=== PATIENT | female | born 1935 | race Caucasian/White ===

== ENCOUNTER 2020-12-04 18:33 | Inpatient (IN) | payer MEDICARE, BC ==
--- NOTE | 2020-12-04 19:48 | ED ---
URI HPI - General Chief Complaint: Upper Respiratory Infection Stated Complaint: cough Time Seen by Provider: 12/04/20 19:24 Source: patient, family, RN notes reviewed Mode of arrival: wheelchair - History of Present Illness Initial Comments: 85-year-old female history pneumonia 2 in the past who states for last week she started with a sinus infection now she's had cough with chest congestion fevers chills sweats decreased oral intake urinary frequency some dizziness also some loss of taste and smell. No known exposure to pneumonia around exposure to influenza or cold and at 21. She also has had some chest tightness. MD Complaint: fever, cough, nasal congestion, other - Related Data Home Medications Medication Instructions Recorded Confirmed Ibuprofen [Motrin Ib] 400 mg PO Q8H PRN 12/04/20 12/04/20 Thyroid,Pork [[place] Thyroid] 30 mg PO DAILY 12/04/20 12/04/20 Allergies Allergy/AdvReac Type Severity Reaction Status Date / Time Penicillins Allergy Itching Verified 12/04/20 20:40 Review of Systems ROS Statement: Those systems with pertinent positive or pertinent negative responses have been documented in the HPI. ROS Other: All systems not noted in ROS Statement are negative. Past Medical History Past Medical History: Thyroid Disorder History of Any Multi-Drug Resistant Organisms: None Reported Past Surgical History: Cholecystectomy Additional Past Surgical History / Comment(s): back surgeries Past Psychological History: No Psychological Hx Reported Smoking Status: Never smoker Past Alcohol Use History: Rare Past Drug Use History: None Reported General Exam - General Exam Comments Initial Comments: This is a well-developed well-nourished awake alert oriented 3 female General appearance: alert, in no apparent distress Head exam: Present: atraumatic, normocephalic, normal inspection Eye exam: Present: normal appearance, PERRL, EOMI. Absent: scleral icterus, conjunctival injection, periorbital swelling ENT exam: Present: mucous membranes dry Neck exam: Present: normal inspection. Absent: tenderness, meningismus, lymphadenopathy Respiratory exam: Present: decreased breath sounds, other (Slight crepitus lipase). Absent: respiratory distress, wheezes, rales, rhonchi, stridor Cardiovascular Exam: Present: regular rate, normal rhythm, normal heart sounds. Absent: systolic murmur, diastolic murmur, rubs, gallop, clicks GI/Abdominal exam: Present: soft, normal bowel sounds. Absent: distended, tenderness, guarding, rebound, rigid Extremities exam: Present: normal inspection, full ROM, normal capillary refill. Absent: tenderness, pedal edema, joint swelling, calf tenderness Back exam: Present: normal inspection Neurological exam: Present: alert, oriented X3, CN II-XII intact Psychiatric exam: Present: normal affect, normal mood Skin exam: Present: warm, dry, intact, normal color. Absent: rash Course Vital Signs 12/04/20 12/04/20 19:13 22:16 Temperature 99.5 F Pulse Rate 80 77 Respiratory 18 16 Rate Blood Pressure 129/63 128/66 O2 Sat by Pulse 93 L 99 Oximetry Medical Decision Making - Medical Decision Making I did a long discussion with patient and her regarding findings patient is cold and positive she does demonstrate evidence of interstitial infiltrate. She did receive IV Rocephin prior to the: Results. Also elevation of her troponin she's had no chest pain. Patient does state that she does not want the antiviral medication at this time. - Lab Data Result diagrams: 12/04/20 19:59 12/04/20 19:59 Lab Results 12/04/20 12/04/20 12/04/20 Range/Units 19:59 19:59 19:59 WBC 13.7 H (3.8-10.6) k/uL RBC 4.22 (3.80-5.40) m/uL Hgb 13.1 (11.4-16.0) gm/dL Hct 39.2 (34.0-46.0) % MCV 93.0 (80.0-100.0) fL MCH 31.1 (25.0-35.0) pg MCHC 33.4 (31.0-37.0) g/dL RDW 12.9 (11.5-15.5) % Plt Count 268 (150-450) k/uL MPV 7.7 Neutrophils % 85 % Lymphocytes % 9 % Monocytes % 4 % Eosinophils % 0 % Basophils % 0 % Neutrophils # 11.6 H (1.3-7.7) k/uL Lymphocytes # 1.3 (1.0-4.8) k/uL Monocytes # 0.5 (0-1.0) k/uL Eosinophils # 0.0 (0-0.7) k/uL Basophils # 0.0 (0-0.2) k/uL Sodium (137-145) mmol/L Potassium (3.5-5.1) mmol/L Chloride (98-107) mmol/L Carbon Dioxide (22-30) mmol/L Anion Gap mmol/L BUN (7-17) mg/dL Creatinine (0.52-1.04) mg/dL Est GFR (CKD-EPI)AfAm (>60 ml/min/1.73 sqM) Est GFR (CKD-EPI)NonAf (>60 ml/min/1.73 sqM) Glucose (74-99) mg/dL Plasma Lactic Acid Federico (0.7-2.0) mmol/L Calcium (8.4-10.2) mg/dL Magnesium (1.6-2.3) mg/dL Total Bilirubin (0.2-1.3) mg/dL AST (14-36) U/L ALT (4-34) U/L Alkaline Phosphatase (38-126) U/L Creatine Kinase (30-135) U/L Troponin I (0.000-0.034) ng/mL Total Protein (6.3-8.2) g/dL Albumin (3.5-5.0) g/dL Urine Color Light Yellow Urine Appearance Clear (Clear) Urine pH 5.5 (5.0-8.0) Ur Specific [place] 1.009 (1.001-1.035) Urine Protein Trace H (Negative) Urine Glucose (UA) Negative (Negative) Urine Ketones Trace H (Negative) Urine Blood Small H (Negative) Urine Nitrite Negative (Negative) Urine Bilirubin Negative (Negative) Urine Urobilinogen <2.0 (<2.0) mg/dL Ur Leukocyte Esterase Small H (Negative) Urine RBC 1 (0-5) /hpf Urine WBC 4 (0-5) /hpf Ur Squamous Epith Cells <1 (0-4) /hpf Urine Bacteria Rare H (None) /hpf Urine Mucus Rare H (None) /hpf Influenza Type A (PCR) Not Detected (Not Detectd) Influenza Type B (PCR) Not Detected (Not Detectd) RSV (PCR) Not Detected (Not Detectd) SARS-CoV-2 (PCR) Detected A (Not Detectd) 12/04/20 12/04/20 12/04/20 Range/Units 19:59 19:59 19:59 WBC (3.8-10.6) k/uL RBC (3.80-5.40) m/uL Hgb (11.4-16.0) gm/dL Hct (34.0-46.0) % MCV (80.0-100.0) fL MCH (25.0-35.0) pg MCHC (31.0-37.0) g/dL RDW (11.5-15.5) % Plt Count (150-450) k/uL MPV Neutrophils % % Lymphocytes % % Monocytes % % Eosinophils % % Basophils % % Neutrophils # (1.3-7.7) k/uL Lymphocytes # (1.0-4.8) k/uL Monocytes # (0-1.0) k/uL Eosinophils # (0-0.7) k/uL Basophils # (0-0.2) k/uL Sodium 130 L (137-145) mmol/L Potassium 4.4 (3.5-5.1) mmol/L Chloride 94 L (98-107) mmol/L Carbon Dioxide 27 (22-30) mmol/L Anion Gap 9 mmol/L BUN 17 (7-17) mg/dL Creatinine 0.79 (0.52-1.04) mg/dL Est GFR (CKD-EPI)AfAm 81 (>60 ml/min/1.73 sqM) Est GFR (CKD-EPI)NonAf 70 (>60 ml/min/1.73 sqM) Glucose 131 H (74-99) mg/dL Plasma Lactic Acid Federico 1.0 (0.7-2.0) mmol/L Calcium 9.7 (8.4-10.2) mg/dL Magnesium 2.0 (1.6-2.3) mg/dL Total Bilirubin 0.6 (0.2-1.3) mg/dL AST 33 (14-36) U/L ALT 23 (4-34) U/L Alkaline Phosphatase 78 (38-126) U/L Creatine Kinase 81 (30-135) U/L Troponin I 0.075 H* (0.000-0.034) ng/mL Total Protein 7.4 (6.3-8.2) g/dL Albumin 4.1 (3.5-5.0) g/dL Urine Color Urine Appearance (Clear) Urine pH (5.0-8.0) Ur Specific [place] (1.001-1.035) Urine Protein (Negative) Urine Glucose (UA) (Negative) Urine Ketones (Negative) Urine Blood (Negative) Urine Nitrite (Negative) Urine Bilirubin (Negative) Urine Urobilinogen (<2.0) mg/dL Ur Leukocyte Esterase (Negative) Urine RBC (0-5) /hpf Urine WBC (0-5) /hpf Ur Squamous Epith Cells (0-4) /hpf Urine Bacteria (None) /hpf Urine Mucus (None) /hpf Influenza Type A (PCR) (Not Detectd) Influenza Type B (PCR) (Not Detectd) RSV (PCR) (Not Detectd) SARS-CoV-2 (PCR) (Not Detectd) - EKG Data -: EKG Interpreted by Me EKG shows normal: sinus rhythm EKG Comments: Sinus rhythm a 76. Interval 166 QRS 140 QT since QTC 446/501 possible left atrial enlargement evidence of left exodeviation left bundle-branch block. No old EKG for comparison - Radiology Data Radiology results: report reviewed (Image reviewed evidence of interstitial infiltrate.), image reviewed Disposition Clinical Impression: Pneumonia, COVID-19, Elevated troponin Disposition: ADMITTED IP TO THIS [facility] Condition: Fair Referrals: Nonstaff,Physician [REFERRING] - 1-2 days
[2020-12-04 20:22] LABS: Basophils % (A) 0 %; Eosinophils % (A) 0 %; HCT 39.2 % (34.0-46.0); HGB 13.1 gm/dL (11.4-16.0); Lymphocytes # (A) 1.3 k/uL (1.0-4.8); Lymphocytes % (A) 9 %; MCH 31.1 pg (25.0-35.0); MCHC 33.4 g/dL (31.0-37.0); Mean Platelet Volume 7.7; Monocytes # (A) 0.5 k/uL (0-1.0); Monocytes % (A) 4 %; Neutrophils # (A) 11.6 k/uL (1.3-7.7); Neutrophils % (A) 85 %; Platelet Count 268 k/uL (150-450); RBC 4.22 m/uL (3.80-5.40); RDW 12.9 % (11.5-15.5); WBC 13.7 k/uL (3.8-10.6)
--- NOTE | 2020-12-04 20:32 | XR ---
EXAMINATION TYPE: XR chest 2V DATE OF EXAM: 12/04/2020 COMPARISON: NONE HISTORY: Cough TECHNIQUE: 2 views FINDINGS: There is pulmonary interstitial and airspace edema. Costophrenic angles are clear. Heart is borderline enlarged. There is a mild thoracic dextroscoliosis. There is very slight blunting of the costophrenic angles. IMPRESSION: Mild pulmonary interstitial edema could relate to acute heart failure. Interstitial pneum onia not excluded.
[2020-12-04 20:39] LABS: Albumin 4.1 g/dL (3.5-5.0); Calcium 9.7 mg/dL (8.4-10.2); Potassium 4.4 mmol/L (3.5-5.1); Total Bilirubin 0.6 mg/dL (0.2-1.3); Total Protein 7.4 g/dL (6.3-8.2)
[2020-12-04 20:41] LABS: Appearance,Urine Clear (Clear); Bacteria,Urine Rare /hpf; Bilirubin,Urine Negative (Negative); Blood,Urine Small (Negative); Color,Urine Light Yellow; Glucose,Urine (UA) Negative (Negative); Ketones,Urine Trace (Negative); Leukocyte Esterase,Urine Small (Negative); Mucus,Urine Rare /hpf; Nitrite,Urine Negative (Negative); PH, Urine 5.5 (5.0-8.0); Protein,Urine Trace (Negative); RBC,Urine 1 /hpf (0-5); Specific Gravity,Urine 1.009 (1.001-1.035); Squamous Epithelial Cell,Urine <1 /hpf (0-4); Urobilinogen,Urine <2.0 mg/dL (<2.0); WBC,Urine 4 /hpf (0-5)
[2020-12-04] MEDS ORDERED: cefTRIAXone IN SWFI 1,000 MG/10 ML SYRINGE IVP ONE (21:15)
[2020-12-04] MEDS ORDERED: PNEUMONIA PROTOCOL UTILIZED 1 EACH MISC PO PRN (22:25)
[2020-12-04] MEDS ORDERED: ASPIRIN 81 MG PO STA (22:29)
[2020-12-04] MEDS ORDERED: NITROGLYCERIN SL TABS 0.4 MG TAB SUBLINGUAL PRN (22:29)
[2020-12-04] MEDS: SODIUM CHLORIDE 0.9% 1,000 ML IV SCH (23:35)
[2020-12-05] MEDS: ACETAMINOPHEN TAB 325 MG TAB PO PRN ×3 (02:25→21:25)
[2020-12-05] MEDS ORDERED: FAMOTIDINE 20 MG TAB PO SCH (09:00)
[2020-12-05] MEDS: THYROID, PORK 30 MG TAB PO SCH (10:11)
[2020-12-05] MEDS: ENOXAPARIN 40 MG/0.4 ML SYRINGE SQ SCH (10:12)
[2020-12-05] MEDS: dexAMETHasone 4 MG TAB PO SCH (10:12)
[2020-12-05] MEDS: ASPIRIN 325 MG TAB PO SCH (10:12)
--- NOTE | 2020-12-05 10:14 | P.HPIM ---
History of Present Illness Patient was an 85-year-old female came in with the complaints of cough and fever found to have COVID-19. Patient is a poor historian patient was having fever for last few days and unable to exactly given the date of fever symptoms patient was having congestion and sinusitis symptoms which started about 2 weeks ago. Exact onset of symptoms is not known. She didn't get her COVID-19 vaccine. She is presently on 2 L of oxygen saturating well chest x-ray findings are consistent with COVID-19. Patient was having minimal cough. Patient is presently having fevers d-dimer is not available which will be ordered. REVIEW OF SYSTEMS: CONSTITUTIONAL: No fever, no malaise, no fatigue. HEENT: No recent visual problems or hearing problems. Denied any sore throat. CARDIOVASCULAR: No chest pain, orthopnea, PND, no palpitations, no syncope. PULMONARY: As mentioned in HPI GASTROINTESTINAL: No diarrhea, no nausea, no vomiting, no abdominal pain. NEUROLOGICAL: No headaches, no weakness, no numbness. HEMATOLOGICAL: Denies any bleeding or petechiae. GENITOURINARY: Denies any burning micturition, frequency, or urgency. MUSCULOSKELETAL/RHEUMATOLOGICAL: Denies any joint pain, swelling, or any muscle pain. ENDOCRINE: Denies any polyuria or polydipsia. The rest of the 14-point review of systems is negative. PHYSICAL EXAMINATION: GENERAL: The patient is alert and oriented x3, not in any acute distress. Well developed, well nourished. HEENT: Pupils are round and equally reacting to light. EOMI. No scleral icterus. No conjunctival pallor. Normocephalic, atraumatic. No pharyngeal erythema. No thyromegaly. CARDIOVASCULAR: S1 and S2 present. No murmurs, rubs, or gallops. PULMONARY: Chest is clear to auscultation, no wheezing or crackles. ABDOMEN: Soft, nontender, nondistended, normoactive bowel sounds. No palpable organomegaly. MUSCULOSKELETAL: No joint swelling or deformity. EXTREMITIES: No cyanosis, clubbing, or pedal edema. NEUROLOGICAL: Gross neurological examination did not reveal any focal deficits. SKIN: No rashes. Assessment and plan -COVID-19 pneumonia: Patient will be started on Decadron Pepcid and Lovenox, d- dimer will be ordered. Pulmonary will be consulted -Mildly elevated troponin secondary to systemic inflammatory response cardiology was consulted -Leukocytosis: Due to assessment 1 hyponatremia hypovolemic hyponatremia patient will be started on IV fluids -Hyperthyroidism patient will be resumed on her home dose of levothyroxine. DVT prophylaxis: Lovenox Past Medical History Past Medical History: Thyroid Disorder History of Any Multi-Drug Resistant Organisms: None Reported Past Surgical History: Back Surgery, Cholecystectomy Additional Past Surgical History / Comment(s): back surgeries Past Anesthesia/Blood Transfusion Reactions: No Reported Reaction Past Psychological History: No Psychological Hx Reported Smoking Status: Unknown if ever smoked Past Alcohol Use History: Rare Past Drug Use History: None Reported Medications and Allergies Home Medications Medication Instructions Recorded Confirmed Type Ibuprofen [Motrin Ib] 400 mg PO Q8H PRN 12/04/20 12/04/20 History Thyroid,Pork [[place] Thyroid] 30 mg PO DAILY 12/04/20 12/04/20 History Allergies Allergy/AdvReac Type Severity Reaction Status Date / Time Penicillins Allergy Itching Verified 12/04/20 20:40 Physical Exam Vitals: Vital Signs Temp Pulse Pulse Resp BP BP Pulse Ox 12/05/20 06:27 100.7 F H 12/05/20 04:00 100.3 F H 95 18 135/64 93 L 12/05/20 03:01 90 L 12/05/20 03:00 102 F H 86 L 12/05/20 02:31 22 91 L 12/05/20 02:00 120 H 22 12/05/20 01:57 103 F H 120 H 18 168/72 89 L 12/04/20 22:16 77 16 128/66 99 12/04/20 19:13 99.5 F 80 18 129/63 93 L Intake and Output 12/04/20 12/05/20 12/05/20 22:59 06:59 14:59 Intake Total 0 Output Total 100 Balance -100 Intake: Oral 0 Output: Urine 100 Other: Voiding Method Diaper External Catheter # Voids 1 1 Weight 70.307 kg 71.5 kg Results CBC & Chem 7: 12/04/20 19:59 12/04/20 19:59 Labs: Abnormal Lab Results - Last 24 Hours (Table) 12/04/20 12/04/20 12/04/20 Range/Units 19:59 19:59 19:59 WBC 13.7 H (3.8-10.6) k/uL Neutrophils # 11.6 H (1.3-7.7) k/uL D-Dimer (<0.60) mg/L FEU Sodium (137-145) mmol/L Chloride (98-107) mmol/L Glucose (74-99) mg/dL Troponin I (0.000-0.034) ng/mL Urine Protein Trace H (Negative) Urine Ketones Trace H (Negative) Urine Blood Small H (Negative) Ur Leukocyte Esterase Small H (Negative) Urine Bacteria Rare H (None) /hpf Urine Mucus Rare H (None) /hpf SARS-CoV-2 (PCR) Detected A (Not Detectd) 12/04/20 12/04/20 12/04/20 Range/Units 19:59 19:59 22:41 WBC (3.8-10.6) k/uL Neutrophils # (1.3-7.7) k/uL D-Dimer (<0.60) mg/L FEU Sodium 130 L (137-145) mmol/L Chloride 94 L (98-107) mmol/L Glucose 131 H (74-99) mg/dL Troponin I 0.075 H* 0.053 H* (0.000-0.034) ng/mL Urine Protein (Negative) Urine Ketones (Negative) Urine Blood (Negative) Ur Leukocyte Esterase (Negative) Urine Bacteria (None) /hpf Urine Mucus (None) /hpf SARS-CoV-2 (PCR) (Not Detectd) 12/05/20 12/05/20 Range/Units 02:06 09:46 WBC (3.8-10.6) k/uL Neutrophils # (1.3-7.7) k/uL D-Dimer 2.02 H (<0.60) mg/L FEU Sodium (137-145) mmol/L Chloride (98-107) mmol/L Glucose (74-99) mg/dL Troponin I 0.066 H* (0.000-0.034) ng/mL Urine Protein (Negative) Urine Ketones (Negative) Urine Blood (Negative) Ur Leukocyte Esterase (Negative) Urine Bacteria (None) /hpf Urine Mucus (None) /hpf SARS-CoV-2 (PCR) (Not Detectd) Thrombosis Risk Factor Assmnt - Choose All That Apply Each Risk Factor Represents 3 Points: Age 75 years or older Thrombosis Risk Factor Assessment Total Risk Factor Score: 3 Thrombosis Risk Factor Assessment Level: Moderate Risk
[2020-12-05 12:07] LABS: Chol/HDL Ratio 2.91 Ratio; HDL Cholesterol 66.6 mg/dL (40.00-60.00); LDL Cholesterol,Calculated 109.8 mg/dL (0.0-131.0); Triglycerides 88.1 mg/dL (0.00-149.00); VLDL Calculation 17.62 mg/dL (5.00-40.00)
--- NOTE | 2020-12-05 12:07 | P.CNPUL ---
History of Present Illness Consult date: 12/05/20 Reason for consult: pneumonia History of present illness: 85-year-old female patient is less with COVID-19 related to pneumonia. The patient was having increased cough and fever. She is essentially a poor historian. Apparently she was having fever for past several days and sized exact onset of the symptoms are not clear to me at this point in time. Note that she is not vaccinated for COVID-19. She is currently hospitalized and she is on 2 L of oxygen by nasal cannula. She had a white cell count of 13.7 at time of admission and her sodium level was 140, troponins were 0.07 and 0.05 respectively 2, d-dimer is at 2.02 and a chest x-ray showed interstitial pneumonia bilaterally. Patient is currently on Decadron the patient also cov ered with Lovenox 40 mg subcu for DVT prophylaxis. The patient is also receiving normal saline at the rate of 100 mL an hour. No other complaints otherwise. Comorbid conditions include hypothyroidism and osteoarthritis. Review of Systems Constitutional: Reports fatigue, Reports fever Eyes: denies as per HPI, denies blurred vision, denies bulging eye, denies decreased vision, denies diplopia, denies discharge, denies dry eye, denies irritation, denies itching, denies pain, denies photophobia, denies loss of peripheral vision, denies loss of vision, denies tunnel vision/blind spots Ears: deny: decreased hearing, ear discharge, earache, tinnitus Ears, nose, mouth and throat: Reports as per HPI Breasts: absent: as per HPI, change in shape, gynecomastia, masses, nipple discharge, pain, skin changes, swelling Cardiovascular: Reports dyspnea on exertion Respiratory: Reports congestion, Reports dyspnea Gastrointestinal: Reports as per HPI Genitourinary: Reports as per HPI Menstruation: Reports as per HPI Musculoskeletal: Reports as per HPI Musculoskeletal: absent: ankle pain, ankle stiffness, ankle swelling, as per HPI, elbow pain, elbow stiffness, elbow swelling, foot pain, foot stiffness, foot swelling, hand pain, hand stiffness, hand swelling, hip pain, hip stiffness , hip swelling, knee pain, knee stiffness, knee swelling, shoulder pain, shoulder stiffness, shoulder swelling, wrist pain, wrist stiffness, wrist swelling Integumentary: Reports as per HPI Neurological: Reports as per HPI Psychiatric: Reports as per HPI Endocrine: Reports as per HPI Hematologic/Lymphatic: Reports as per HPI Allergic/Immunologic: Reports as per HPI Past Medical History Past Medical History: Thyroid Disorder History of Any Multi-Drug Resistant Organisms: None Reported Past Surgical History: Back Surgery, Cholecystectomy Additional Past Surgical History / Comment(s): back surgeries Past Anesthesia/Blood Transfusion Reactions: No Reported Reaction Past Psychological History: No Psychological Hx Reported Smoking Status: Unknown if ever smoked Past Alcohol Use History: Rare Past Drug Use History: None Reported Medications and Allergies Home Medications Medication Instructions Recorded Confirmed Type Ibuprofen [Motrin Ib] 400 mg PO Q8H PRN 12/04/20 12/04/20 History Thyroid,Pork [[place] Thyroid] 30 mg PO DAILY 12/04/20 12/04/20 History Allergies Allergy/AdvReac Type Severity Reaction Status Date / Time Penicillins Allergy Itching Verified 12/04/20 20:40 Physical Exam Vitals: Vital Signs Temp Pulse Pulse Resp BP BP Pulse Ox 12/05/20 06:27 100.7 F H 12/05/20 04:00 100.3 F H 95 18 135/64 93 L 12/05/20 03:01 90 L 12/05/20 03:00 102 F H 86 L 12/05/20 02:31 22 91 L 12/05/20 02:00 120 H 22 12/05/20 01:57 103 F H 120 H 18 168/72 89 L 12/04/20 22:16 77 16 128/66 99 12/04/20 19:13 99.5 F 80 18 129/63 93 L Intake and Output 12/04/20 12/05/20 12/05/20 22:59 06:59 14:59 Intake Total 0 Output Total 425 Balance -425 Intake: Oral 0 Output: Urine 100 Urine/Stool Mix 325 Other: Voiding Method Diaper External Catheter # Voids 1 1 Weight 70.307 kg 71.5 kg GENERAL: The patient is alert and oriented x3, not in any acute distress. Well developed, well nourished. HEENT: Pupils are round and equally reacting to light. EOMI. No scleral icterus. No conjunctival pallor. Normocephalic, atraumatic. No pharyngeal erythema. No thyromegaly. CARDIOVASCULAR: S1 and S2 present. No murmurs, rubs, or gallops. PULMONARY: Chest is clear to auscultation, no wheezing or crackles. ABDOMEN: Soft, nontender, nondistended, normoactive bowel sounds. No palpable organomegaly. MUSCULOSKELETAL: No joint swelling or deformity. EXTREMITIES: No cyanosis, clubbing, or pedal edema. NEUROLOGICAL: Gross neurological examination did not reveal any focal deficits. SKIN: No rashes. Results - Laboratory Findings CBC and BMP: 12/04/20 19:59 12/04/20 19:59 PT/INR, D-dimer D-Dimer 2.02 mg/L FEU (<0.60) H 12/05/20 09:46 Abnormal lab findings: Abnormal Labs 12/04/20 12/04/20 12/04/20 19:59 19:59 19:59 WBC 13.7 H Neutrophils # 11.6 H D-Dimer Sodium Chloride Glucose Troponin I Urine Protein Trace H Urine Ketones Trace H Urine Blood Small H Ur Leukocyte Esterase Small H Urine Bacteria Rare H Urine Mucus Rare H SARS-CoV-2 (PCR) Detected A 12/04/20 12/04/20 12/04/20 19:59 19:59 22:41 WBC Neutrophils # D-Dimer Sodium 130 L Chloride 94 L Glucose 131 H Troponin I 0.075 H* 0.053 H* Urine Protein Urine Ketones Urine Blood Ur Leukocyte Esterase Urine Bacteria Urine Mucus SARS-CoV-2 (PCR) 12/05/20 12/05/20 02:06 09:46 WBC Neutrophils # D-Dimer 2.02 H Sodium Chloride Glucose Troponin I 0.066 H* Urine Protein Urine Ketones Urine Blood Ur Leukocyte Esterase Urine Bacteria Urine Mucus SARS-CoV-2 (PCR) - Diagnostic Findings Chest x-ray: image reviewed Assessment and Plan Plan: 1 acute COVID-19 related pneumonia. The exact onset of symptoms is not clear and the patient is currently hospitalized with acute hypoxic respiratory failure maintained on 2 L of oxygen by cannula. The patient is not vaccinated. She believes that her symptoms started approximately 5 days ago. Nevertheless, prior to that, she had some sinus symptoms and she attributed this to some sinusitis. As such, the exact timing and onset of symptoms is not clear. 2 acute hypoxic respiratory failure secondary to above 3 Hypothyroid 4 OA Plan Continue oxygen flow at 2 L per minute nasal cannula to maintain saturation above 90% Decadron 6 g IV every 24 hours Lovenox 40 mg subcu daily Check LDH and CRP Monitor oxygenation and wean down the FiO2 as tolerated to maintain a saturation above 90% Not a good candidate for Remdesivir Resume all medications We'll continue to follow
--- NOTE | 2020-12-05 12:57 | PN ---
PROGRESS NOTE I did not see this patient. She has been admitted with fever and COVID positive interstitial pneumonia. Troponin was elevated. I was asked to see her in this regard. Troponin profile does not suggest myocardial injury. I am recommending that we will obtain echocardiogram tomorrow and based on that we will make recommendations. The patient is already being treated by the admitting doctor for her COVID interstitial pneumonia. I will see her only if necessary but will recommend echocardiogram. MMODL / IJN: [id number] /
[2020-12-05] MEDS: BENZOCAINE/MENTHOL LOZENG 1 EACH LOZENGE MUCOUS MEM PRN (16:50)
[2020-12-05] MEDS: SODIUM CHLORIDE 0.9% 1,000 ML IV SCH (16:51)
[2020-12-06] MEDS: SODIUM CHLORIDE 0.9% 1,000 ML IV SCH ×3 (00:25→19:37)
[2020-12-06] MEDS: ACETAMINOPHEN TAB 325 MG TAB PO PRN ×2 (06:51→18:01)
[2020-12-06 08:04] LABS: HCT 36.8 % (34.0-46.0); HGB 12.2 gm/dL (11.4-16.0); MCHC 33.1 g/dL (31.0-37.0); MCV 93.5 fL (80.0-100.0); Mean Platelet Volume 8.4; Platelet Count 267 k/uL (150-450); RBC 3.94 m/uL (3.80-5.40); RDW 13.1 % (11.5-15.5); WBC 16.9 k/uL (3.8-10.6)
[2020-12-06 08:18] LABS: African American GFR (CKD) >90 (>60 ml/min/1.73 sqM); Anion Gap 11 mmol/L; Blood Urea Nitrogen 16 mg/dL (7-17); Calcium 8.9 mg/dL (8.4-10.2); Carbon Dioxide 23 mmol/L (22-30); Chloride 99 mmol/L (98-107); Glucose 110 mg/dL (74-99); Non-African American GFR(CKD) 82 (>60 ml/min/1.73 sqM); Potassium 4.2 mmol/L (3.5-5.1); Sodium 133 mmol/L (137-145)
[2020-12-06] MEDS ORDERED: FAMOTIDINE 20 MG TAB PO SCH (09:00)
[2020-12-06] MEDS: ENOXAPARIN 40 MG/0.4 ML SYRINGE SQ SCH (09:43)
[2020-12-06] MEDS: ASPIRIN 325 MG TAB PO SCH (09:43)
[2020-12-06] MEDS: dexAMETHasone 4 MG TAB PO SCH (09:43)
[2020-12-06] MEDS: THYROID, PORK 30 MG TAB PO SCH (09:43)
[2020-12-06] MEDS: IBUPROFEN 400 MG TAB PO PRN (13:05)
--- NOTE | 2020-12-06 14:37 | P.PN ---
Subjective This 85-year-old female past medical history of hypothyroidism. She does not see a edge setter. We are being consulted for elevated troponin. Patient presents emergency department with cough and fever about have COVID-19. Blood pressure 03/28/1956, heart rate 124, febrile temperature of 103F. oxygen saturations 88% on 4 L nasal cannula, requiring increase to 7L high flow. Laboratory data reviewed. WBC 16.9, hemoglobin 12, platelets 267, sodium 133, potassium 4.0, BUN 16, serum creatinine 0.6, d-dimer 2.02, troponin 0.07, 0.05, 0.06. PHYSICAL EXAMINATION: GENERAL: The patient is alert and oriented x3, not in any acute distress. Well developed, well nourished. ASSESSMENT Elevated troponin, does not suggest myocardial injury, most likely related to covid-19 infection Covid-19 Acute hypoxic respiratory failure Hypothyroidism PLAN: -2D echocardiogram obtained, awaiting read -Covid-19 treatment per primary and pulmonary -No further changes from cardiology perspective -If echocardiogram with no acute findings we will follow the patient as needed Objective - Vital Signs Vital signs: Vital Signs Temp 103.1 F H 12/06/20 08:00 Pulse 124 H 12/06/20 08:00 Resp 20 12/06/20 08:00 BP 124/59 12/06/20 08:00 Pulse Ox 88 L 12/06/20 08:00 Intake & Output 12/05/20 12/06/20 12/06/20 18:59 06:59 18:59 Intake Total 420 200 0 Output Total 650 Balance -230 200 0 Intake: IV 200 Sodium Chloride 0.9% 1, 200 000 ml @ 100 mls/hr IV . Q10H [facility] Rx#:[id number] Oral 420 0 Output: Urine 100 Urine/Stool Mix 550 Other: Voiding Method Diaper Diaper External Catheter External Catheter # Voids 1 2 - Labs CBC & Chem 7: 12/06/20 07:28 12/06/20 07:28 Labs: Abnormal Lab Results - Last 24 Hours (Table) 12/06/20 12/06/20 Range/Units 07:28 07:28 WBC 16.9 H (3.8-10.6) k/uL Sodium 133 L (137-145) mmol/L Glucose 110 H (74-99) mg/dL Microbiology - Last 24 Hours (Table) 12/04/20 19:59 Blood Culture - Preliminary Blood No Growth after 24 hours
--- NOTE | 2020-12-06 17:22 | P.PN ---
Subjective Progress Note Date: 12/06/20 Principal diagnosis: Acute hypoxic laboratory failure secondary to COVID-19 pneumonia 85-year-old female patient is less with COVID-19 related to pneumonia. The patient was having increased cough and fever. She is essentially a poor historian. Apparently she was having fever for past several days and sized exact onset of the symptoms are not clear to me at this point in time. Note that she is not vaccinated for COVID-19. She is currently hospitalized and she is on 2 L of oxygen by nasal cannula. She had a white cell count of 13.7 at time of admission and her sodium level was 140, troponins were 0.07 and 0.05 respectively 2, d-dimer is at 2.02 and a chest x-ray showed interstitial pneumonia bilaterally. Patient is currently on Decadron the patient also covered with Lovenox 40 mg subcu for DVT prophylaxis. The patient is also receiving normal saline at the rate of 100 mL an hour. No other complaints otherwise. Comorbid conditions include hypothyroidism and osteoarthritis. Reevaluated today on 12/06/2020, patient remains on 8 L high flow cannula with O2 saturation ranging anywhere between 88-96%. Patient seems to be comfortable, not in any distress. She is afebrile, she is hemodynamically stable blood pressure is 117/58. Labs today were unremarkable except she does have leukocytosis with WBC count of 16.9, d-dimer is 2.02 lites are normal renal pr ofile is normal. Patient is on COVID-19 cocktail, she is on Lovenox 40 mg subcu daily, she is on Decadron, did not receive Remdesivir, as she was likely out of the therapeutic window. Objective - Vital Signs Vital signs: Vital Signs Temp 98.3 F 12/06/20 12:00 Pulse 92 12/06/20 14:00 Resp 18 12/06/20 14:00 BP 117/58 12/06/20 12:00 Pulse Ox 96 12/06/20 12:00 Intake & Output 12/05/20 12/06/20 12/06/20 18:59 06:59 18:59 Intake Total 420 200 0 Output Total 650 Balance -230 200 0 Intake: IV 200 Sodium Chloride 0.9% 1, 200 000 ml @ 100 mls/hr IV . Q10H [facility] Rx#:[id number] Oral 420 0 Output: Urine 100 Urine/Stool Mix 550 Other: Voiding Method Diaper Diaper Diaper External Catheter External Catheter External Catheter # Voids 1 2 # Bowel Movements 1 - Exam Physical Exam revealed 85-year-old female on 7 L high flow cannula Head: Atraumatic, normocephalic. HEENT:[Neck is supple.] [No neck masses.] [No thyromegaly.] [No JVD.] Chest: [Symmetrical chest expansion crackles at the bases. No wheezes. Cardiac Exam: [Normal S1 and S2, no S3 gallop, no murmur.] Abdomen: [Soft, nontender, no megaly, no rebound, no guarding, normal bowel sounds.] Extremities: [No clubbing, no edema, no cyanosis.] Neurological Exam: [No focal neurologic deficit.] Alert oriented 3. Psychiatric: Normal mood affect and normal mental status examination. Skin: No rashes - Labs CBC & Chem 7: 12/06/20 07:28 12/06/20 07:28 Labs: Abnormal Lab Results - Last 24 Hours (Table) 12/06/20 12/06/20 Range/Units 07:28 07:28 WBC 16.9 H (3.8-10.6) k/uL Sodium 133 L (137-145) mmol/L Glucose 110 H (74-99) mg/dL Microbiology - Last 24 Hours (Table) 12/06/20 09:51 Sputum Culture - Preliminary Sputum 12/04/20 19:59 Blood Culture - Preliminary Blood No Growth after 24 hours Assessment and Plan Assessment: Acute hypoxic respiratory failure secondary to acute COVID-19 pneumonia History of hypothyroidism History of degenerative joint disease Recommendation: Continue oxygen and titrate accordingly Continue Decadron. Continue to monitor inflammatory markers Continue Lovenox 40 mg subcu daily Patient is out of the window for remdesivir We'll continue to follow. Time with Patient: Less than 30
[2020-12-06] MEDS: FAMOTIDINE 20 MG TAB PO SCH (22:26)
--- NOTE | 2020-12-07 03:50 | P.PN ---
Subjective Progress Note Date: 12/06/20 Patient was an 85-year-old female came in with the complaints of cough and fever found to have COVID-19. Patient is a poor historian patient was having fever for last few days and unable to exactly given the date of fever symptoms patient was having congestion and sinusitis symptoms which started about 2 weeks ago. Exact onset of symptoms is not known. She didn't get her COVID-19 vaccine. She is presently on 2 L of oxygen saturating well chest x-ray findings are consistent with COVID-19. Patient was having minimal cough. Patient is presently having fevers d-dimer is not available which will be ordered. 12/06/2020 Patient is seen and evaluated in follow up this morning and is slightly anxious. Patient is continued on 7-8 L High flow via NC with 02 saturations ranging from 88-94%. Patient denies any worsening shortness of breath but is requiring more oxygen supplementation. Pulmonary and cardio following. 2d echo was done and awaiting read. Patient continues on lovenox, oral decadron, along with vitamin and zinc supplementation. Patient continues to have fevers with T max 103.1. WBC is 16.9 today. Review of systems: Constitutional: No reports of fatigue, reports fever Cardiovascular: No reports of chest pain or palpitations Respiratory: reports of shortness of breath although no worsening GI: No reports of nausea, vomiting, or diarrhea : No reports of dysuria or retention Neurovascular: Reports generalized weakness PHYSICAL EXAMINATION: GENERAL: The patient is alert and oriented x3, not in any acute distress. Anxious, Well developed, well nourished. HEENT: Pupils are round and equally reacting to light. EOMI. No scleral icterus. No conjunctival pallor. Normocephalic, atraumatic. No pharyngeal erythema. No thyromegaly. CARDIOVASCULAR: S1 and S2 present. No murmurs, rubs, or gallops. PULMONARY: Chest is clear to auscultation, no wheezing or crackles. ABDOMEN: Soft, nontender, nondistended, normoactive bowel sounds. No palpable organomegaly. MUSCULOSKELETAL: No joint swelling or deformity. EXTREMITIES: No cyanosis, clubbing, or pedal edema. NEUROLOGICAL: Gross neurological examination did not reveal any focal deficits. diffusely weak SKIN: No rashes. Assessment and plan: -COVID-19 pneumonia: Patient maintained on Decadron, vitamin and zinc supp lements, and Lovenox. Pulmonary following -Mildly elevated troponin secondary to systemic inflammatory response cardiology evaluated the patient and 2d echo ordered -Leukocytosis: Due to assessment 1 -hyponatremia hypovolemic hyponatremia patient will be started on IV fluids, improving sodium is 133 today -Hypothyroidism patient will be resumed on her home dose of armour thyroid -DVT prophylaxis: Lovenox -Full code Plan: Continue current medications and wean FI02 as tolerated. PT/OT to evaluate the patient. Patient is weak and may possibly require rehab on discharge. Patient had temps this am and 02 requirements increased from 4L NC to 8L HF. Encouraged oral intake. Pulmonary following. Sputum culture pending. Patient with continued fevers and elevated WBC. Patient has been started on IV ceftriaxone. Will repeat am labs and order pro-calcitonin. Monitor for worsening respiratory status. Will order am chest xray as well. 2d echo pending. Objective - Vital Signs Vital signs: Vital Signs Temp 103.1 F H 12/06/20 06:49 Pulse 108 H 12/06/20 04:00 Resp 18 12/06/20 04:00 BP 144/78 12/06/20 04:00 Pulse Ox 93 L 12/06/20 04:00 Intake & Output 12/05/20 12/06/20 12/06/20 18:59 06:59 18:59 Intake Total 420 200 Output Total 650 Balance -230 200 Intake: IV 200 Sodium Chloride 0.9% 1, 200 000 ml @ 100 mls/hr IV . Q10H [facility] Rx#:[id number] Oral 420 Output: Urine 100 Urine/Stool Mix 550 Other: Voiding Method Diaper Diaper External Catheter External Catheter # Voids 1 2 - Labs CBC & Chem 7: 12/06/20 07:28 12/06/20 07:28 Labs: Abnormal Lab Results - Last 24 Hours (Table) 12/05/20 12/05/20 12/06/20 Range/Units 02:06 09:46 07:28 WBC 16.9 H (3.8-10.6) k/uL D-Dimer 2.02 H (<0.60) mg/L FEU Sodium (137-145) mmol/L Glucose (74-99) mg/dL HDL Cholesterol 66.60 H (40.00-60.00) mg/dL 12/06/20 Range/Units 07:28 WBC (3.8-10.6) k/uL D-Dimer (<0.60) mg/L FEU Sodium 133 L (137-145) mmol/L Glucose 110 H (74-99) mg/dL HDL Cholesterol (40.00-60.00) mg/dL Microbiology - Last 24 Hours (Table) 12/04/20 19:59 Blood Culture - Preliminary Blood No Growth after 24 hours
--- NOTE | 2020-12-07 08:12 | XR ---
EXAMINATION TYPE: XR chest 1V portable DATE OF EXAM: 12/07/2020 COMPARISON: Chest x-ray 12/04/2020 HISTORY: Shortness of breath TECHNIQUE: Single frontal view of the chest is obtained. FINDINGS: There is progression of bilateral airspace disease. Heart is thought to be enlarged. There is no evident pneumothorax or pleural effusion. Underlying scoliotic curvature noted in the spine, t here is degenerative disc change. There are overlying artifacts. Arthropathy noted shoulders. IMPRESSION: There is bilateral airspace disease, correlate for congestive heart failure, pneumonia, pulmonary edema
[2020-12-07 09:18] LABS: Basophils % (A) 0 %; Eosinophils # (A) 0.1 k/uL (0-0.7); Eosinophils % (A) 0 %; HCT 41.1 % (34.0-46.0); HGB 13.7 gm/dL (11.4-16.0); Lymphocytes # (A) 0.9 k/uL (1.0-4.8); Lymphocytes % (A) 4 %; MCH 31.1 pg (25.0-35.0); MCHC 33.4 g/dL (31.0-37.0); MCV 92.9 fL (80.0-100.0); Mean Platelet Volume 8.5; Monocytes # (A) 0.5 k/uL (0-1.0); Monocytes % (A) 2 %; Neutrophils # (A) 20.4 k/uL (1.3-7.7); Neutrophils % (A) 93 %; Platelet Count 282 k/uL (150-450); RBC 4.42 m/uL (3.80-5.40); RDW 13.4 % (11.5-15.5)
[2020-12-07] MEDS ORDERED: FUROSEMIDE 10 MG/ML 4 ML VIAL IV STA (09:43)
[2020-12-07 09:48] LABS: African American GFR (CKD) >90 (>60 ml/min/1.73 sqM); Anion Gap 10 mmol/L; Blood Urea Nitrogen 20 mg/dL (7-17); Calcium 9.6 mg/dL (8.4-10.2); Carbon Dioxide 25 mmol/L (22-30); Chloride 101 mmol/L (98-107); Glucose 124 mg/dL (74-99); Non-African American GFR(CKD) 87 (>60 ml/min/1.73 sqM); Potassium 4.6 mmol/L (3.5-5.1); Sodium 136 mmol/L (137-145)
[2020-12-07] MEDS: IBUPROFEN 400 MG TAB PO PRN (10:19)
[2020-12-07] MEDS: FAMOTIDINE 20 MG TAB PO SCH ×2 (10:21→23:14)
[2020-12-07] MEDS: BENZOCAINE/MENTHOL LOZENG 1 EACH LOZENGE MUCOUS MEM PRN ×2 (10:21→16:28)
[2020-12-07] MEDS: ASPIRIN 325 MG TAB PO SCH (10:21)
[2020-12-07] MEDS: ENOXAPARIN 40 MG/0.4 ML SYRINGE SQ SCH (10:21)
[2020-12-07] MEDS: dexAMETHasone 4 MG TAB PO SCH ×2 (10:21→23:14)
[2020-12-07] MEDS: THYROID, PORK 30 MG TAB PO SCH (10:21)
[2020-12-07] MEDS: SODIUM CHLORIDE 0.9% 1,000 ML IV SCH (10:41)
--- NOTE | 2020-12-07 13:07 | P.PN ---
Subjective Progress Note Date: 12/07/20 Principal diagnosis: Acute hypoxic respiratory failure secondary to COVID-19 85-year-old female patient is less with COVID-19 related to pneumonia. The patient was having increased cough and fever. She is essentially a poor historian. Apparently she was having fever for past several days and sized exact onset of the symptoms are not clear to me at this point in time. Note that she is not vaccinated for COVID-19. She is currently hospitalized and she is on 2 L of oxygen by nasal cannula. She had a white cell count of 13.7 at time of admission and her sodium level was 140, troponins were 0.07 and 0.05 respectively 2, d-dimer is at 2.02 and a chest x-ray showed interstitial pneumonia bilaterally. Patient is currently on Decadron the patient also covered with Lovenox 40 mg subcu for DVT prophylaxis. The patient is also receiving normal saline at the rate of 100 mL an hour. No other complaints otherwise. Comorbid conditions include hypothyroidism and osteoarthritis. Reevaluated today on 12/06/2020, patient remains on 8 L high flow cannula with O2 saturation ranging anywhere between 88-96%. Patient seems to be comfortable, not in any distress. She is afebrile, she is hemodynamically stable blood pressure is 117/58. Labs today were unremarkable except she does have leukocytosis with WBC count of 16.9, d-dimer is 2.02 lites are normal renal profile is normal. Patient is on COVID-19 cocktail, she is on Lovenox 40 mg subcu daily, she is on Decadron, did not receive Remdesivir, as she was likely out of the therapeutic window. The patient is seen today at 50,021 in follow-up on the selective care unit. She is currently resting fairly comfortably in bed. Awake and alert. She is requiring 10 L high flow nasal cannula to maintain O2 saturation at 90%. She's been afebrile. Hemodynamically stable. Chest x-ray continues to revealed bilateral airspace disease, possible underlying pulmonary edema. Blood cultures reveal no growth to date. Sputum culture pending. White count 22.0. Hemoglobin 13.7. Lymphocytes 0.9. Sodium 136. Potassium 4.6. Creatinine 0.56. She remains on Decadron 6 mg twice a day, Lovenox. Initiated on ceftriaxone per medicine. Pro-calcitonin pending. Received IV diuretics today. Objective - Vital Signs Vital signs: Vital Signs Temp 98.3 F 12/07/20 10:42 Pulse 93 12/07/20 10:42 Resp 24 12/07/20 12:00 BP 148/67 12/07/20 10:42 Pulse Ox 87 L 12/07/20 10:42 Intake & Output 12/06/20 12/07/20 12/07/20 18:59 06:59 18:59 Intake Total 240 830 Output Total 1180 Balance 240 -1180 830 Weight 75 kg Intake: IV 600 Sodium Chloride 0.9% 1, 600 000 ml @ 100 mls/hr IV . Q10H [facility] Rx#:[id number] Intake, IV Titration 50 Amount cefTRIAXone 1 gm In 50 Sodium Chloride 0.9% 50 ml @ 100 mls/hr IVPB Q24HR [facility] Rx#:[id number] Oral 240 180 Output: Urine 1180 Other: Voiding Method Diaper Diaper Diaper External Catheter External Catheter External Catheter # Voids 2 # Bowel Movements 1 1 - Exam GENERAL: The patient is a pleasant 85-year-old female patient, hard of hearing, alert and oriented x3, in mild respiratory distress. On 10 L high flow nasal cannula. Well developed, well nourished. HEENT: Pupils are round and equally reacting to light. EOMI. No scleral icterus. No conjunctival pallor. Normocephalic, atraumatic. No pharyngeal erythema. No thyromegaly. CARDIOVASCULAR: S1 and S2 present. No murmurs, rubs, or gallops. PULMONARY: Lungs sounds with bilateral crackles in the posterior bases ABDOMEN: Soft, nontender, nondistended, normoactive bowel sounds. No palpable organomegaly. MUSCULOSKELETAL: No joint swelling or deformity. EXTREMITIES: No cyanosis, clubbing, or pedal edema. NEUROLOGICAL: Gross neurological examination did not reveal any focal deficits. SKIN: No rashes. - Labs CBC & Chem 7: 12/07/20 08:29 12/07/20 08:29 Labs: Abnormal Lab Results - Last 24 Hours (Table) 12/07/20 12/07/20 Range/Units 08:29 08:29 WBC 22.0 H (3.8-10.6) k/uL Neutrophils # 20.4 H (1.3-7.7) k/uL Lymphocytes # 0.9 L (1.0-4.8) k/uL Sodium 136 L (137-145) mmol/L BUN 20 H (7-17) mg/dL Glucose 124 H (74-99) mg/dL Microbiology - Last 24 Hours (Table) 12/06/20 09:51 Gram Stain - Preliminary Sputum Sputum Culture - Preliminary 12/04/20 19:59 Blood Culture - Preliminary Blood No Growth after 48 hours Assessment and Plan Assessment: 1 Acute COVID-19 related pneumonia. The patient is not vaccinated. Outside the window for Remdesivir. 2 Acute hypoxic respiratory failure secondary to above number currently on 10 L high flow nasal cannula 3 Hypothyroid 4 OA Plan: The patient was seen and evaluated by Dr. Leyva Chest x-ray and labs reviewed Increase Decadron to 6 mg twice a day Procalcitonin level pending Continue Lovenox, bronchodilators, vitamin supplements Titrate the FiO2 as tolerated Condition is guarded We will continue to follow I, the cosigning physician, performed a history & physical examination of the patient. Lungs sounds crackles in the bilateral posterior. Maintaining good O2 saturations in the 90s on 10 L high flow nasal cannula. I discussed the assessment and plan of care with my nurse practitioner, Erlinda Deutsch. I attest to the above note as dictated by her.
[2020-12-07] MEDS: CHOLECALCIFEROL 25 MCG (1000 IU) TABLET PO SCH (16:24)
[2020-12-07] MEDS: ASCORBIC ACID 500 MG TAB PO SCH (16:24)
[2020-12-07] MEDS: ZINC SULFATE 220 MG CAP PO SCH (16:25)
[2020-12-07] MEDS: MELATONIN 3 MG TABLET PO PRN (23:14)
--- NOTE | 2020-12-08 04:32 | P.PN ---
Subjective Progress Note Date: 12/07/20 Patient was an 85-year-old female came in with the complaints of cough and fever found to have COVID-19. Patient is a poor historian patient was having fever for last few days and unable to exactly given the date of fever symptoms patient was having congestion and sinusitis symptoms which started about 2 weeks ago. Exact onset of symptoms is not known. She didn't get her COVID-19 vaccine. She is presently on 2 L of oxygen saturating well chest x-ray findings are consistent with COVID-19. Patient was having minimal cough. Patient is presently having fevers d-dimer is not available which will be ordered. 12/06/2020 Patient is seen and evaluated in follow up this morning and is slightly anxious. Patient is continued on 7-8 L High flow via NC with 02 saturations ranging from 88-94%. Patient denies any worsening shortness of breath but is requiring more oxygen supplementation. Pulmonary and cardio following. 2d echo was done and awaiting read. Patient continues on lovenox, oral decadron, along with vitamin and zinc supplementation. Patient continues to have fevers with T max 103.1. WBC is 16.9 today. 12/07/2020 Patient is seen in follow up today and requiring more oxygen as pulse ox was in the low to mid 80's on 8 L high flow via NC. Increased to 10 L HF with pulmonary following closely. Patient continues on decadron oral bid along lovenox being started on vitamin and zinc supplements and ID consulted for further evaluation of Covid 19. Patient was empirically started on IV ceftriaxone and given and dose for possible UTI although suspicion is low and will discontinue. Appreciate ID input. WBC elevated at 22 although likely due to steroids and will monitor. Will add incentive spirometer as well. Review of systems: Constitutional: No reports of fatigue, reports fever, reports unable to sleep Cardiovascular: No reports of chest pain or palpitations Respiratory: reports of shortness of breath with some worsening GI: No reports of nausea, vomiting, or diarrhea : No reports of dysuria or retention Neurovascular: Reports generalized weakness PHYSICAL EXAMINATION: GENERAL: The patient is alert and oriented x3, not in any acute distress. Anxious, Well developed, well nourished. HEENT: Pupils are round and equally reacting to light. EOMI. No scleral icterus. No conjunctival pallor. Normocephalic, atraumatic. No pharyngeal erythema. No thyromegaly. CARDIOVASCULAR: S1 and S2 present. No murmurs, rubs, or gallops. PULMONARY: diminished breath sounds otherwise Chest is clear to auscultation, no wheezing or crackles. ABDOMEN: Soft, nontender, nondistended, normoactive bowel sounds. No palpable organomegaly. MUSCULOSKELETAL: No joint swelling or deformity. EXTREMITIES: No cyanosis, clubbing, or pedal edema. NEUROLOGICAL: Gross neurological examination did not reveal any focal deficits. diffusely weak SKIN: No rashes. Assessment and plan: -COVID-19 pneumonia: Patient maintained on Decadron, vitamin and zinc supplements, and Lovenox. Pulmonary following -Mildly elevated troponin secondary to systemic inflammatory response cardiology evaluated the patient and 2d echo ordered -Leukocytosis: Due to assessment 1 -possible acute UTI, although suspicion is low and not having any burning or dysuria, possible asymptomatic bactiuria. will dc IV ceftriaxone, ID consulted -hyponatremia hypovolemic hyponatremia patient on IV fluids, improved. will dc fluids -Hypothyroidism patient will be resumed on her home dose of armour thyroid -DVT prophylaxis: Lovenox -Full code Plan: Continue current medications and wean FI02 as tolerated. PT/OT to evaluate the patient. Patient is weak and may possibly require rehab on discharge. Patient afebrile this am and 02 requirements increased from 8L NC to 10L HF. Encouraged oral intake. Pulmonary following. Sputum culture pending. Patient with continued elevated WBC. Patient has been started on IV ceftriaxone for possible UTI although suspicion is low and will dc abx. ID consulted and pending. Will repeat am labs and inflammatory markers. Monitor for worsening respiratory status. 2d echo pending. Objective - Vital Signs Vital signs: Vital Signs Temp 98.5 F 12/07/20 04:00 Pulse 93 12/07/20 04:00 Resp 20 12/07/20 04:00 BP 166/72 12/07/20 04:00 Pulse Ox 94 L 12/07/20 04:00 Intake & Output 12/06/20 12/07/20 12/07/20 18:59 06:59 18:59 Intake Total 240 180 Output Total 1180 Balance 240 -1180 180 Weight 75 kg Intake: Oral 240 180 Output: Urine 1180 Other: Voiding Method Diaper Diaper External Catheter External Catheter # Voids 2 # Bowel Movements 1 1 - Labs CBC & Chem 7: 12/07/20 08:29 12/07/20 08:29 Labs: Abnormal Lab Results - Last 24 Hours (Table) 12/07/20 Range/Units 08:29 WBC 22.0 H (3.8-10.6) k/uL Neutrophils # 20.4 H (1.3-7.7) k/uL Lymphocytes # 0.9 L (1.0-4.8) k/uL Microbiology - Last 24 Hours (Table) 12/06/20 09:51 Gram Stain - Preliminary Sputum Sputum Culture - Preliminary 12/04/20 19:59 Blood Culture - Preliminary Blood No Growth after 48 hours
[2020-12-08] MEDS: IBUPROFEN 400 MG TAB PO PRN (07:36)
[2020-12-08] MEDS: BENZOCAINE/MENTHOL LOZENG 1 EACH LOZENGE MUCOUS MEM PRN ×2 (07:36→15:27)
[2020-12-08] MEDS: ASPIRIN 325 MG TAB PO SCH (07:37)
[2020-12-08] MEDS: dexAMETHasone 4 MG TAB PO SCH ×2 (07:37→19:56)
[2020-12-08] MEDS: ASCORBIC ACID 500 MG TAB PO SCH (07:37)
[2020-12-08] MEDS: ENOXAPARIN 40 MG/0.4 ML SYRINGE SQ SCH (07:37)
[2020-12-08] MEDS: FAMOTIDINE 20 MG TAB PO SCH ×2 (07:37→19:56)
[2020-12-08] MEDS: THYROID, PORK 30 MG TAB PO SCH (07:38)
[2020-12-08] MEDS: ZINC SULFATE 220 MG CAP PO SCH (07:38)
[2020-12-08] MEDS: CHOLECALCIFEROL 25 MCG (1000 IU) TABLET PO SCH (07:38)
[2020-12-08 08:05] LABS: Basophils % (A) 0 %; Eosinophils % (A) 0 %; HCT 37.6 % (34.0-46.0); HGB 12.4 gm/dL (11.4-16.0); Lymphocytes # (A) 1.1 k/uL (1.0-4.8); Lymphocytes % (A) 6 %; MCV 93.8 fL (80.0-100.0); Mean Platelet Volume 7.8; Monocytes # (A) 0.3 k/uL (0-1.0); Monocytes % (A) 2 %; Neutrophils # (A) 17.8 k/uL (1.3-7.7); Neutrophils % (A) 92 %; Platelet Count 352 k/uL (150-450); WBC 19.2 k/uL (3.8-10.6)
--- NOTE | 2020-12-08 08:19 | XR ---
EXAMINATION TYPE: XR chest 1V portable DATE OF EXAM: 12/08/2020 COMPARISON: 12/07/2020 HISTORY: Cough TECHNIQUE: Single frontal view of the chest is obtained. FINDINGS: Diffuse bilateral airspace disease. Tiny bilateral effusions. No pneumothorax. Arthropathy shoulders. Heart is enlarged. Underlying COPD suggested. Curvature of the spine. IMPRESSION: Stable diffuse bilateral airspace disease.
[2020-12-08 08:34] LABS: African American GFR (CKD) >90 (>60 ml/min/1.73 sqM); Anion Gap 9 mmol/L; Blood Urea Nitrogen 22 mg/dL (7-17); Calcium 9.4 mg/dL (8.4-10.2); Carbon Dioxide 23 mmol/L (22-30); Chloride 103 mmol/L (98-107); Glucose 147 mg/dL (74-99); LDH 990 U/L (313-618); Non-African American GFR(CKD) 90 (>60 ml/min/1.73 sqM); Potassium 4.3 mmol/L (3.5-5.1); Sodium 135 mmol/L (137-145)
[2020-12-08 09:03] LABS: C Reactive Protein 24.5 mg/dL (<1.0)
--- NOTE | 2020-12-08 11:04 | P.CONS ---
History of Present Illness - Reason for Consult Consult date: 12/07/20 covid 19 pneumonia Requesting physician: Lynda Alcantar - Chief Complaint congested cough and fever x days - History of Present Illness History of Present Illness : Patient is 85-year-old female presenting to the ER on 12/04/2020 for evaluation of cough chest congestion fever and chills for the last several days, patient mention it initially started symptoms mostly with a head cold and subsequent having a more of a congested cough however she not bringing up any sputum patient denies having any pleuritic chest pain, patient complaining of feeling nauseated decreased oral intake but no vomiting no abdominal pain he did have some diarrhea with the center the patient was evaluated by the ER physician on arrival to the ER patient did have fever 103 F and the patient did spike a fever the next day on 12/06/2020 however no fever recorded so far today the patient was also hypoxic with a sat between 93 to 89% and the patient is currently on 10 L high flow oxygen patient on presentation to hospital her white count of 13.7 with left shift no lymphopenia D-dimer was mildly elevated creatinine was normal liver enzymes are normal did have elevated troponin procalcitonin is 0.65 urine was negative bush PCR came back positive influenza PCR was negative patient chest x-ray mild pulmonary interstitial edema could relate to acute heart failure repeat x-ray this morning did shows bilateral airspace disease correlate for congestive heart failure and pneumonia as well as pulmonary edema per the radiologist report patient has been treated with the Lovenox and dexamethasone remdesivir was not given as exact onset of symptoms could not be rectified infectious was consulted today for her positive Covid test, patient is feeling better since the patient has been in the hospital as far as the breathing is concerned Review of system: CONSTITUTIONAL: Positive for weakness fever. EYES: No complaint. ENT: No complaint. RESPIRATORY: As per history of present illness. CARDIOVASCULAR: No complaint. GENITOURINARY: No complaint. GASTROINTESTINAL: As per history of present illness MUSCULOSKELETAL: No complaint. INTEGUMENTARY : No complaint. PSYCHOLOGIC: No complaint. ENDOCRINE: No complaint. NEUROLOGIC: No complaint. Past medical history : Reviewed, documented below Past surgical history : Reviewed, documented below Social history: Reviewed, documented below Medications: Reviewed, as documented below EXAMINATION: Vital sigans= Reviewed and documented below GENERAL DESCRIPTION elderly female lying in bed, no distress. No tachypnea or accessory muscle of respiration use. HEENT: Shows Pallor , no scleral icterus. Oral mucous membrane is dry. NECK: Trachea central, no thyromegaly. LUNGS: Unlabored breathing. Coarse breath sounds bilaterally. No wheeze or crackle. HEART: S1, S2, regular rate and rhythm. ABDOMEN: Soft, no tenderness , guarding or rigidity EXTREMITIES: No edema feet SKIN: No rash, no masses palpable. NEUROLOGICAL: The patient is awake, alert, oriented x3, mood and affect normal. LABS AND RADIOLOGY: Reviewed results see below Assessment : Patient presented to hospital with fever increasing shortness of breath hypoxemia did have a congested cough with bilateral interstitial infiltrate likely secondary to COVID-19 pneumonia clinically doubt secondary bacterial pneumonia, unfortunately she evaluated good historian so exact symptom onset cannot be determined however the patient is currently on very high flow oxygen and will not be an ideal candidate for remdesivir patient may benefit from Baricitinab Plan: 1-no need for systemic antibiotic therapy 2-continue with the Lovenox dexamethasone zinc and ascorbic acid 3-droplet isolation and respiratory support 4-may be candidate for Baricitinab, will discuss with pulmonary We will follow on clinical condition and cultures to further adjust medication if needed Thank you for this consultation we will follow the patient along with you Past Medical History Past Medical History: Thyroid Disorder History of Any Multi-Drug Resistant Organisms: None Reported Past Surgical History: Back Surgery, Cholecystectomy Additional Past Surgical History / Comment(s): back surgeries Past Anesthesia/Blood Transfusion Reactions: No Reported Reaction Past Psychological History: No Psychological Hx Reported Smoking Status: Unknown if ever smoked Past Alcohol Use History: Rare Past Drug Use History: None Reported Medications and Allergies Home Medications Medication Instructions Recorded Confirmed Type Ibuprofen [Motrin Ib] 400 mg PO Q8H PRN 12/04/20 12/04/20 History Thyroid,Pork [[place] Thyroid] 30 mg PO DAILY 12/04/20 12/04/20 History Allergies Allergy/AdvReac Type Severity Reaction Status Date / Time Penicillins Allergy Itching Verified 12/04/20 20:40 Physical Exam Vitals: Vital Signs Temp Pulse Resp BP Pulse Ox 12/07/20 12:58 88 24 137/65 90 L 12/07/20 12:00 24 12/07/20 10:42 98.3 F 93 24 148/67 87 L 12/07/20 04:00 98.5 F 93 20 166/72 94 L 12/07/20 02:00 76 18 12/07/20 00:00 97.6 F 76 18 138/63 92 L 12/06/20 20:00 98.1 F 75 20 128/58 92 L Intake and Output 12/07/20 12/07/20 12/07/20 06:59 14:59 22:59 Intake Total 1070 Output Total 840 Balance -840 1070 Intake: IV 600 Sodium Chloride 0.9% 1, 600 000 ml @ 100 mls/hr IV . Q10H [facility] Rx#:[id number] Intake, IV Titration 50 Amount cefTRIAXone 1 gm In 50 Sodium Chloride 0.9% 50 ml @ 100 mls/hr IVPB Q24HR [facility] Rx#:[id number] Oral 420 Output: Urine 840 Other: Voiding Method Diaper Diaper External Catheter External Catheter # Voids 2 1 # Bowel Movements 1 1 Weight 75 kg Results CBC & Chem 7: 12/08/20 07:44 12/08/20 07:44 Labs: Abnormal Lab Results - Last 24 Hours (Table) 12/07/20 12/07/20 Range/Units 08:29 08:29 WBC 22.0 H (3.8-10.6) k/uL Neutrophils # 20.4 H (1.3-7.7) k/uL Lymphocytes # 0.9 L (1.0-4.8) k/uL Sodium 136 L (137-145) mmol/L BUN 20 H (7-17) mg/dL Glucose 124 H (74-99) mg/dL Microbiology - Last 24 Hours (Table) 12/06/20 09:51 Gram Stain - Preliminary Sputum Sputum Culture - Preliminary 12/04/20 19:59 Blood Culture - Preliminary Blood No Growth after 48 hours
[2020-12-08] MEDS: amLODIPine 5 MG TAB PO SCH (11:26)
--- NOTE | 2020-12-08 14:10 | P.PN ---
Subjective Progress Note Date: 12/08/20 Principal diagnosis: Acute hypoxic respiratory failure secondary to COVID-19 85-year-old female patient is less with COVID-19 related to pneumonia. The patient was having increased cough and fever. She is essentially a poor historian. Apparently she was having fever for past several days and sized exact onset of the symptoms are not clear to me at this point in time. Note that she is not vaccinated for COVID-19. She is currently hospitalized and she is on 2 L of oxygen by nasal cannula. She had a white cell count of 13.7 at time of admission and her sodium level was 140, troponins were 0.07 and 0.05 respectively 2, d-dimer is at 2.02 and a chest x-ray showed interstitial pneumonia bilaterally. Patient is currently on Decadron the patient also covered with Lovenox 40 mg subcu for DVT prophylaxis. The patient is also receiving normal saline at the rate of 100 mL an hour. No other complaints otherwise. Comorbid conditions include hypothyroidism and osteoarthritis. Reevaluated today on 12/06/2020, patient remains on 8 L high flow cannula with O2 saturation ranging anywhere between 88-96%. Patient seems to be comfortable, not in any distress. She is afebrile, she is hemodynamically stable blood pressure is 117/58. Labs today were unremarkable except she does have leukocytosis with WBC count of 16.9, d-dimer is 2.02 lites are normal renal profile is normal. Patient is on COVID-19 cocktail, she is on Lovenox 40 mg subcu daily, she is on Decadron, did not receive Remdesivir, as she was likely out of the therapeutic window. The patient is seen today at 50,021 in follow-up on the selective care unit. She is currently resting fairly comfortably in bed. Awake and alert. She is requiring 10 L high flow nasal cannula to maintain O2 saturation at 90%. She's been afebrile. Hemodynamically stable. Chest x-ray continues to revealed bilateral airspace disease, possible underlying pulmonary edema. Blood cultures reveal no growth to date. Sputum culture pending. White count 22.0. Hemoglobin 13.7. Lymphocytes 0.9. Sodium 136. Potassium 4.6. Creatinine 0.56. She remains on Decadron 6 mg twice a day, Lovenox. Initiated on ceftriaxone per medicine. Pro-calcitonin pending. Received IV diuretics today. The patient is seen today 12/08/2020 follow-up on the selective care unit. She is currently sitting up in a chair at the bedside. Awake and alert in no acute distress. She is up to 15 L high flow nasal cannula to maintain O2 saturation the high 80s low 90s. She is continued on Lovenox, Decadron, vitamin supplements. No evidence of infection. Blood cultures reveal no growth. Sputum culture revealed no growth. White count 19.2. Hemoglobin 12.4. Lymphocytes 1.1. D-dimer 2.41. Sodium 135. Potassium 4.3. Creatinine 0.51. Glucose 147. LDH 990. C-reactive protein 24.5. ProCalcitonin 0.65. Objective - Vital Signs Vital signs: Vital Signs Temp 98.8 F 12/08/20 11:44 Pulse 79 12/08/20 11:44 Resp 28 H 12/08/20 11:44 BP 151/77 12/08/20 11:44 Pulse Ox 89 L 12/08/20 11:49 Intake & Output 12/07/20 12/08/20 12/08/20 18:59 06:59 18:59 Intake Total 1250 500 Output Total 300 Balance 1250 200 Weight 73.5 kg Intake: IV 600 20 Invasive Line 1 20 Sodium Chloride 0.9% 1, 600 000 ml @ 100 mls/hr IV . Q10H [facility] Rx#:[id number] Intake, IV Titration 50 Amount cefTRIAXone 1 gm In 50 Sodium Chloride 0.9% 50 ml @ 100 mls/hr IVPB Q24HR [facility] Rx#:[id number] Oral 600 480 Output: Urine 300 Other: Voiding Method Diaper Diaper Bedside Commode External Catheter External Catheter Bedpan # Voids 1 1 1 # Bowel Movements 1 1 1 - Exam GENERAL: The patient is a pleasant 85-year-old female patient, hard of hearing, alert and oriented x3, in mild respiratory distress. On 15 L high flow nasal cannula. Well developed, well nourished. HEENT: Pupils are round and equally reacting to light. EOMI. No scleral icterus. No conjunctival pallor. Normocephalic, atraumatic. No pharyngeal erythema. No thyromegaly. CARDIOVASCULAR: S1 and S2 present. No murmurs, rubs, or gallops. PULMONARY: Lungs sounds with bilateral crackles in the posterior bases ABDOMEN: Soft, nontender, nondistended, normoactive bowel sounds. No palpable organomegaly. MUSCULOSKELETAL: No joint swelling or deformity. EXTREMITIES: No cyanosis, clubbing, or pedal edema. NEUROLOGICAL: Gross neurological examination did not reveal any focal deficits. SKIN: No rashes. - Labs CBC & Chem 7: 12/08/20 07:44 12/08/20 07:44 Labs: Abnormal Lab Results - Last 24 Hours (Table) 12/07/20 12/08/20 12/08/20 Range/Units 08:29 07:44 07:44 WBC (3.8-10.6) k/uL Neutrophils # (1.3-7.7) k/uL D-Dimer 2.41 H (<0.60) mg/L FEU Sodium 135 L (137-145) mmol/L BUN 22 H (7-17) mg/dL Creatinine 0.51 L (0.52-1.04) mg/dL Glucose 147 H (74-99) mg/dL Lactate Dehydrogenase 990 H (313-618) U/L C-Reactive Protein 24.5 H (<1.0) mg/dL Procalcitonin 0.65 H (0.02-0.09) ng/mL 12/08/20 Range/Units 07:44 WBC 19.2 H (3.8-10.6) k/uL Neutrophils # 17.8 H (1.3-7.7) k/uL D-Dimer (<0.60) mg/L FEU Sodium (137-145) mmol/L BUN (7-17) mg/dL Creatinine (0.52-1.04) mg/dL Glucose (74-99) mg/dL Lactate Dehydrogenase (313-618) U/L C-Reactive Protein (<1.0) mg/dL Procalcitonin (0.02-0.09) ng/mL Microbiology - Last 24 Hours (Table) 12/06/20 09:51 Gram Stain - Final Sputum Sputum Culture - Final 12/04/20 19:59 Blood Culture - Preliminary Blood No Growth after 72 hours Assessment and Plan Assessment: 1 Acute COVID-19 related pneumonia. The patient is not vaccinated. Outside the window for Remdesivir. 2 Acute hypoxic respiratory failure secondary to above number currently on 15 L high flow nasal cannula 3 Hypothyroid 4 OA Plan: The patient was seen and evaluated by Dr. Leyva Up to 15 L high flow oxygen Initiate Baricitinib Continue Decadron, Lovenox, bronchodilators, vitamin supplements Titrate the FiO2 as tolerated Condition is guarded We will continue to follow I, the cosigning physician, performed a history & physical examination of the patient. Lungs sounds crackles in the bilateral posterior bases. Maintaining good O2 saturations in the 90s on 15 L high flow nasal cannula. I discussed the assessment and plan of care with my nurse practitioner, Erlinda Deutsch. I attest to the above note as dictated by her.
[2020-12-08] MEDS: BARICITINIB 2 MG TABLET PO SCH (15:27)
[2020-12-08] MEDS: ALPRAZolam 0.25 MG TAB PO PRN (19:56)
--- NOTE | 2020-12-08 23:40 | PN ---
PROGRESS NOTE DATE OF SERVICE: 12/08/2020 REASON FOR FOLLOWUP: COVID-19 pneumonia. INTERVAL HISTORY: The patient is afebrile. The patient is breathing comfortably. However, she has been requiring high-flow nasal cannula is up to 15 L. Denies any chest pain. Did have a cough, not bringing up any sputum. No vomiting. No abdominal pain. No diarrhea. PHYSICAL EXAMINATION: Blood pressure 130/60 with a pulse of 87. Temperature is 97.8. She is 94% on 15 L high-flow oxygen. General description is an elderly female lying in bed in no distress. Respiratory system: Unlabored breathing, decreased intensity of breath sounds. No wheeze. Heart S1, S2. Regular rate and rhythm. Abdomen soft, no tenderness. LABS: Hemoglobin is 12.4, white count 19.2. Creatinine 0.51. DIAGNOSTIC IMPRESSION AND PLAN: Patient with acute respiratory failure secondary to COVID-19 pneumonia. The patient currently has been started on baricitinib to continue along with Lovenox, dexamethasone, zinc and ascorbic acid. Monitor clinical course closely. Continue supportive care. MMODL / IJN: [id number] /
--- NOTE | 2020-12-09 03:13 | P.PN ---
Subjective Progress Note Date: 12/08/20 Patient was an 85-year-old female came in with the complaints of cough and fever found to have COVID-19. Patient is a poor historian patient was having fever for last few days and unable to exactly given the date of fever symptoms patient was having congestion and sinusitis symptoms which started about 2 weeks ago. Exact onset of symptoms is not known. She didn't get her COVID-19 vaccine. She is presently on 2 L of oxygen saturating well chest x-ray findings are consistent with COVID-19. Patient was having minimal cough. Patient is presently having fevers d-dimer is not available which will be ordered. 12/06/2020 Patient is seen and evaluated in follow up this morning and is slightly anxious. Patient is continued on 7-8 L High flow via NC with 02 saturations ranging from 88-94%. Patient denies any worsening shortness of breath but is requiring more oxygen supplementation. Pulmonary and cardio following. 2d echo was done and awaiting read. Patient continues on lovenox, oral decadron, along with vitamin and zinc supplementation. Patient continues to have fevers with T max 103.1. WBC is 16.9 today. 12/07/2020 Patient is seen in follow up today and requiring more oxygen as pulse ox was in the low to mid 80's on 8 L high flow via NC. Increased to 10 L HF with pulmonary following closely. Patient continues on decadron oral bid along lovenox being started on vitamin and zinc supplements and ID consulted for further evaluation of Covid 19. Patient was empirically started on IV ceftriaxone and given and dose for possible UTI although suspicion is low and will discontinue. Appreciate ID input. WBC elevated at 22 although likely due to steroids and will monitor. Will add incentive spirometer as well. 12/08/2020 Patient is seen and evaluated in follow up today and oxygen saturations continue to worsen now requiring 15L HF. Pulmonary following closely along with infectious disease. Patient is afebrile and extremely anxious and concerned of overall well-being. Patient states her and close neighbor has been tested for covid and pending. Patient is maintained on covid medications and Baricitinib being started. Patient was outside the window for remdesivir. Review of systems: Constitutional: No reports of fatigue, reports fever, reports anxiety Cardiovascular: No reports of chest pain or palpitations Respiratory: reports of shortness of breath with some worsening GI: No reports of nausea, vomiting, or diarrhea : No reports of dysuria or retention Neurovascular: Reports generalized weakness PHYSICAL EXAMINATION: GENERAL: The patient is alert and oriented x3, not in any acute distress. Anxious, Well developed, well nourished. HEENT: Pupils are round and equally reacting to light. EOMI. No scleral icterus. No conjunctival pallor. Normocephalic, atraumatic. No pharyngeal erythema. No thyromegaly. CARDIOVASCULAR: S1 and S2 present. No murmurs, rubs, or gallops. PULMONARY: diminished breath sounds otherwise Chest is clear to auscultation, no wheezing or crackles. ABDOMEN: Soft, nontender, nondistended, normoactive bowel sounds. No palpable organomegaly. MUSCULOSKELETAL: No joint swelling or deformity. EXTREMITIES: No cyanosis, clubbing, or pedal edema. NEUROLOGICAL: Gross neurological examination did not reveal any focal deficits. diffusely weak SKIN: No rashes. Assessment and plan: -COVID-19 pneumonia: Patient maintained on Decadron, vitamin and zinc supplements, and Lovenox. Pulmonary following and starting on Baricitinib -Mildly elevated troponin secondary to systemic inflammatory response cardiology evaluated the patient and 2d echo ordered -Leukocytosis: Due to assessment 1 -possible acute UTI, although suspicion is low and not having any burning or dysuria, possible asymptomatic bacteriuria. will dc IV ceftriaxone, ID consulted -hyponatremia hypovolemic hyponatremia patient on IV fluids, improved. fluids have been discontinue -Hypothyroidism continue home dose of armour thyroid -DVT prophylaxis: Lovenox -Full code Plan: Continue current medications and wean FI02 as tolerated. PT/OT to evaluate the patient. Patient is weak and may possibly require rehab on discharge. Patient afebrile this am and 02 requirements increased from 10L hf NC to 15L HF. Being started on Baricitinib. Encouraged oral intake. Pulmonary following. Sputum culture negative. Patient with continued elevated WBC most likely a component of being steroid induced. ID consulted and following. Will repeat am labs and inflammatory markers. Monitor for worsening respiratory status. 2d echo pending and will need to call tech in regards to read as this has been done and no report showing. Objective - Vital Signs Vital signs: Vital Signs Temp 97.8 F 12/08/20 07:58 Pulse 103 H 12/08/20 07:58 Resp 28 H 12/08/20 07:58 BP 168/75 12/08/20 07:58 Pulse Ox 90 L 12/08/20 07:58 Intake & Output 12/07/20 12/08/20 12/08/20 18:59 06:59 18:59 Intake Total 1250 Balance 1250 Weight 73.5 kg Intake: IV 600 Sodium Chloride 0.9% 1, 600 000 ml @ 100 mls/hr IV . Q10H [facility] Rx#:[id number] Intake, IV Titration 50 Amount cefTRIAXone 1 gm In 50 Sodium Chloride 0.9% 50 ml @ 100 mls/hr IVPB Q24HR [facility] Rx#:[id number] Oral 600 Other: Voiding Method Diaper Diaper Bedside Commode External Catheter External Catheter Bedpan # Voids 1 1 # Bowel Movements 1 1 - Labs CBC & Chem 7: 12/08/20 07:44 12/08/20 07:44 Labs: Abnormal Lab Results - Last 24 Hours (Table) 12/07/20 12/07/20 12/07/20 Range/Units 08:29 08:29 08:29 WBC 22.0 H (3.8-10.6) k/uL Neutrophils # 20.4 H (1.3-7.7) k/uL Lymphocytes # 0.9 L (1.0-4.8) k/uL D-Dimer (<0.60) mg/L FEU Sodium 136 L (137-145) mmol/L BUN 20 H (7-17) mg/dL Glucose 124 H (74-99) mg/dL Procalcitonin 0.65 H (0.02-0.09) ng/mL 12/08/20 12/08/20 Range/Units 07:44 07:44 WBC 19.2 H (3.8-10.6) k/uL Neutrophils # 17.8 H (1.3-7.7) k/uL Lymphocytes # (1.0-4.8) k/uL D-Dimer 2.41 H (<0.60) mg/L FEU Sodium (137-145) mmol/L BUN (7-17) mg/dL Glucose (74-99) mg/dL Procalcitonin (0.02-0.09) ng/mL Microbiology - Last 24 Hours (Table) 12/04/20 19:59 Blood Culture - Preliminary Blood No Growth after 72 hours 12/06/20 09:51 Gram Stain - Preliminary Sputum Sputum Culture - Preliminary
[2020-12-09 07:26] LABS: Basophils % (A) 0 %; Eosinophils % (A) 0 %; HCT 36.9 % (34.0-46.0); HGB 11.8 gm/dL (11.4-16.0); Lymphocytes # (A) 1.4 k/uL (1.0-4.8); Lymphocytes % (A) 10 %; MCH 30.4 pg (25.0-35.0); MCHC 32.1 g/dL (31.0-37.0); MCV 94.7 fL (80.0-100.0); Mean Platelet Volume 7.9; Monocytes # (A) 0.4 k/uL (0-1.0); Monocytes % (A) 3 %; Neutrophils # (A) 12.6 k/uL (1.3-7.7); Neutrophils % (A) 87 %; Platelet Count 381 k/uL (150-450); WBC 14.5 k/uL (3.8-10.6)
[2020-12-09 08:40] LABS: C Reactive Protein 14.9 mg/dL (<1.0)
[2020-12-09 08:57] LABS: African American GFR (CKD) >90 (>60 ml/min/1.73 sqM); Anion Gap 7 mmol/L; Blood Urea Nitrogen 31 mg/dL (7-17); Calcium 9.3 mg/dL (8.4-10.2); Carbon Dioxide 26 mmol/L (22-30); Chloride 102 mmol/L (98-107); Glucose 138 mg/dL (74-99); Non-African American GFR(CKD) 88 (>60 ml/min/1.73 sqM); Potassium 4.9 mmol/L (3.5-5.1); Sodium 135 mmol/L (137-145)
[2020-12-09] MEDS: ASCORBIC ACID 500 MG TAB PO SCH (09:51)
[2020-12-09] MEDS: ZINC SULFATE 220 MG CAP PO SCH (09:51)
[2020-12-09] MEDS: amLODIPine 5 MG TAB PO SCH (09:51)
[2020-12-09] MEDS: ENOXAPARIN 40 MG/0.4 ML SYRINGE SQ SCH (09:51)
[2020-12-09] MEDS: CHOLECALCIFEROL 25 MCG (1000 IU) TABLET PO SCH (09:51)
[2020-12-09] MEDS: FAMOTIDINE 20 MG TAB PO SCH ×2 (09:51→19:44)
[2020-12-09] MEDS: ASPIRIN 325 MG TAB PO SCH (09:51)
[2020-12-09] MEDS: THYROID, PORK 30 MG TAB PO SCH (09:52)
[2020-12-09] MEDS: dexAMETHasone 4 MG TAB PO SCH ×2 (09:52→19:44)
[2020-12-09] MEDS: BENZOCAINE/MENTHOL LOZENG 1 EACH LOZENGE MUCOUS MEM PRN (09:56)
--- NOTE | 2020-12-09 11:51 | P.PN ---
Subjective Progress Note Date: 12/09/20 Principal diagnosis: Acute hypoxic respiratory failure secondary to COVID-19 85-year-old female patient is less with COVID-19 related to pneumonia. The patient was having increased cough and fever. She is essentially a poor historian. Apparently she was having fever for past several days and sized exact onset of the symptoms are not clear to me at this point in time. Note that she is not vaccinated for COVID-19. She is currently hospitalized and she is on 2 L of oxygen by nasal cannula. She had a white cell count of 13.7 at time of admission and her sodium level was 140, troponins were 0.07 and 0.05 respectively 2, d-dimer is at 2.02 and a chest x-ray showed interstitial pneumonia bilaterally. Patient is currently on Decadron the patient also covered with Lovenox 40 mg subcu for DVT prophylaxis. The patient is also receiving normal saline at the rate of 100 mL an hour. No other complaints otherwise. Comorbid conditions include hypothyroidism and osteoarthritis. Reevaluated today on 12/06/2020, patient remains on 8 L high flow cannula with O2 saturation ranging anywhere between 88-96%. Patient seems to be comfortable, not in any distress. She is afebrile, she is hemodynamically stable blood pressure is 117/58. Labs today were unremarkable except she does have leukocytosis with WBC count of 16.9, d-dimer is 2.02 lites are normal renal profile is normal. Patient is on COVID-19 cocktail, she is on Lovenox 40 mg subcu daily, she is on Decadron, did not receive Remdesivir, as she was likely out of the therapeutic window. The patient is seen today at 50,021 in follow-up on the selective care unit. She is currently resting fairly comfortably in bed. Awake and alert. She is requiring 10 L high flow nasal cannula to maintain O2 saturation at 90%. She's been afebrile. Hemodynamically stable. Chest x-ray continues to revealed bilateral airspace disease, possible underlying pulmonary edema. Blood cultures reveal no growth to date. Sputum culture pending. White count 22.0. Hemoglobin 13.7. Lymphocytes 0.9. Sodium 136. Potassium 4.6. Creatinine 0.56. She remains on Decadron 6 mg twice a day, Lovenox. Initiated on ceftriaxone per medicine. Pro-calcitonin pending. Received IV diuretics today. The patient is seen today 12/08/2020 follow-up on the selective care unit. She is currently sitting up in a chair at the bedside. Awake and alert in no acute distress. She is up to 15 L high flow nasal cannula to maintain O2 saturation the high 80s low 90s. She is continued on Lovenox, Decadron, vitamin supplements. No evidence of infection. Blood cultures reveal no growth. Sputum culture revealed no growth. White count 19.2. Hemoglobin 12.4. Lymphocytes 1.1. D-dimer 2.41. Sodium 135. Potassium 4.3. Creatinine 0.51. Glucose 147. LDH 990. C-reactive protein 24.5. ProCalcitonin 0.65. The patient is see today 12/09/2020 in follow-up on the selective care unit. She is currently resting fairly comfortably in bed. Awake and alert in no acute distress. Breathing about the same today as compared to yesterday. Remains on 15 L high flow nasal cannula to remain saturations in the 80s and 90s. Blood culture reveals no growth. Sputum culture revealed no growth. White count 14.5. Hemoglobin 11.8. Lymphocytes 1.4. Sodium 135. Potassium 4.9. Creatinine 0.54. Glucose 138. C-reactive protein 14.9. She remains on Baricitinib, Decadron, Lovenox, vitamin supplements. Objective - Vital Signs Vital signs: Vital Signs Temp 97.7 F 12/09/20 09:18 Pulse 87 12/09/20 09:18 Resp 22 12/09/20 09:18 BP 113/58 12/09/20 09:18 Pulse Ox 84 L 12/09/20 09:18 Intake & Output 12/08/20 12/09/20 12/09/20 18:59 06:59 18:59 Intake Total 680 240 Output Total 300 280 Balance 380 -280 240 Weight 74 kg Intake: IV 20 Invasive Line 1 20 Oral 660 240 Output: Urine 300 280 Other: Voiding Method Bedside Commode Bedside Commode Bedside Commode Bedpan Bedpan Bedpan # Voids 1 1 # Bowel Movements 1 - Exam GENERAL: The patient is a pleasant 85-year-old female patient, hard of hearing, alert and oriented x3, in mild respiratory distress. On 15 L high flow nasal cannula. Well developed, well nourished. HEENT: Pupils are round and equally reacting to light. EOMI. No scleral icterus. No conjunctival pallor. Normocephalic, atraumatic. No pharyngeal erythema. No thyromegaly. CARDIOVASCULAR: S1 and S2 present. No murmurs, rubs, or gallops. PULMONARY: Lungs sounds with bilateral crackles in the posterior bases ABDOMEN: Soft, nontender, nondistended, normoactive bowel sounds. No palpable organomegaly. MUSCULOSKELETAL: No joint swelling or deformity. EXTREMITIES: No cyanosis, clubbing, or pedal edema. NEUROLOGICAL: Gross neurological examination did not reveal any focal deficits. SKIN: No rashes. - Labs CBC & Chem 7: 12/09/20 06:47 12/09/20 06:47 Labs: Abnormal Lab Results - Last 24 Hours (Table) 12/09/20 12/09/20 Range/Units 06:47 06:47 WBC 14.5 H (3.8-10.6) k/uL Neutrophils # 12.6 H (1.3-7.7) k/uL Sodium 135 L (137-145) mmol/L BUN 31 H (7-17) mg/dL Glucose 138 H (74-99) mg/dL C-Reactive Protein 14.9 H (<1.0) mg/dL Microbiology - Last 24 Hours (Table) 12/04/20 19:59 Blood Culture - Preliminary Blood No Growth after 96 hours 12/06/20 09:51 Gram Stain - Final Sputum Sputum Culture - Final Assessment and Plan Assessment: 1 Acute COVID-19 related pneumonia. The patient is not vaccinated. Outside the window for Remdesivir. Initiated on Baricitinib 12/08/2020 2 Acute hypoxic respiratory failure secondary to above, currently on 15 L high flow nasal cannula 3 Hypothyroid 4 OA Plan: The patient was seen and evaluated by Dr. Leyva Continue Baricitinib, Decadron, Lovenox, bronchodilators, vitamin supplements Titrate the FiO2 as tolerated Increase her activity as tolerated Condition is guarded We will continue to follow I, the cosigning physician, performed a history & physical examination of the patient. Lungs sounds crackles in the bilateral posterior bases. Maintaining good O2 saturations in the 90s on 15 L high flow nasal cannula. I discussed the assessment and plan of care with my nurse practitioner, Erlinda Deutsch. I attest to the above note as dictated by her.
--- NOTE | 2020-12-09 12:42 | ECHOF ---
Referral Reason:elevated trops, drs order MEASUREMENTS -------- HEIGHT: 162.6 cm WEIGHT: 71.2 kg BP: 144/78 RVIDd: 3.4 cm (< 3.3) IVSd: 1.6 cm (0.6 - 1.1) LVIDd: 3.5 cm (3.9 - 5.3) LVPWd: 1.4 cm (0.6 - 1.1) IVSs: 1.7 cm LVIDs: 2.7 cm LVPWs: 1.5 cm LAESV Index (A-L): 32.64 ml/m Ao Diam: 2.3 cm (2.0 - 3.7) AV Cusp: 1.6 cm (1.5 - 2.6) LA Diam: 3.3 cm (2.7 - 3.8) MV EXCURSION: 13.351 mm (> 18.000) MV EF SLOPE: 45 mm/s (70 - 150) EPSS: 0.2 cm MV E Hola: 1.44 m/s MV DecT: 180 ms MV A Hola: 1.83 m/s MV E/A Ratio: 0.79 AV maxP.31 mmHg AV meanP.92 mmHg AR PHT: 364 ms RAP: 5.00 mmHg RVSP: 47.95 mmHg FINDINGS -------- Sinus rhythm. This was a technically adequate study. The left ventricular size is normal. There is moderate concentric left ventricular hypertrophy. O verall left ventricular systolic function is low-normal with, an EF between 50 - 55 %. The right ventricle is mildly enlarged. LA is midly dilated 29-33ml/m2. The right atrial size is normal. Interatrial and interventricular septum intact. There is mild aortic regurgitation. There is moderate aortic stenosis present. Peak/mean gradient across the Aortic Valve is 41.31mmHg / 24.92mmHg. Moderate mitral annular calcification present. Mild mitral regurgitation is present. Mild mitral stenosis. [id number] tricuspid regurgitation present. There is mild to moderate pulmonary hypertension. The right ventricular systolic pressure, as measured by Doppler, is 47.95mmHg. There is no pulmonic regurgitation present. The aortic root size is normal. IVC Not well visulized. There is no pericardial effusion. CONCLUSIONS -------- 1. The left ventricular size is normal. 2. There is moderate concentric left ventricular hypertrophy. 3. Overall left ventricular systolic function is low-normal with, an EF between 50 - 55 %. 4. The right ventricle is mildly enlarged. 5. LA is midly dilated 29-33ml/m2. 6. There is mild aortic regurgitation. 7. There is moderate aortic stenosis present. 8. Peak/mean gradient across the Aortic Valve is 41.31mmHg / 24.92mmHg. 9. Moderate mitral annular calcification present. 10. Mild mitral regurgitation is present. 11. Mild mitral stenosis. 12. [id number] tricuspid regurgitation present. 13. There is mild to moderate pulmonary hypertension. 14. The right ventricular systolic pressure, as measured by Doppler, is 47.95mmHg. SOFTWARE QA MANAGER: Chandrika Rose RDCS
[2020-12-09 15:33] VITALS: BMI 28.0
[2020-12-09] MEDS: BARICITINIB 2 MG TABLET PO SCH (17:28)
[2020-12-09] MEDS: ALPRAZolam 0.25 MG TAB PO PRN (20:03)
--- NOTE | 2020-12-10 05:38 | P.PN ---
Subjective Progress Note Date: 12/10/20 Patient was an 85-year-old female came in with the complaints of cough and fever found to have COVID-19. Patient is a poor historian patient was having fever for last few days and unable to exactly given the date of fever symptoms patient was having congestion and sinusitis symptoms which started about 2 weeks ago. Exact onset of symptoms is not known. She didn't get her COVID-19 vaccine. She is presently on 2 L of oxygen saturating well chest x-ray findings are consistent with COVID-19. Patient was having minimal cough. Patient is presently having fevers d-dimer is not available which will be ordered. 12/06/2020 Patient is seen and evaluated in follow up this morning and is slightly anxious. Patient is continued on 7-8 L High flow via NC with 02 saturations ranging from 88-94%. Patient denies any worsening shortness of breath but is requiring more oxygen supplementation. Pulmonary and cardio following. 2d echo was done and awaiting read. Patient continues on lovenox, oral decadron, along with vitamin and zinc supplementation. Patient continues to have fevers with T max 103.1. WBC is 16.9 today. 12/07/2020 Patient is seen in follow up today and requiring more oxygen as pulse ox was in the low to mid 80's on 8 L high flow via NC. Increased to 10 L HF with pulmonary following closely. Patient continues on decadron oral bid along lovenox being started on vitamin and zinc supplements and ID consulted for further evaluation of Covid 19. Patient was empirically started on IV ceftriaxone and given and dose for possible UTI although suspicion is low and will discontinue. Appreciate ID input. WBC elevated at 22 although likely due to steroids and will monitor. Will add incentive spirometer as well. 12/08/2020 Patient is seen and evaluated in follow up today and oxygen saturations continue to worsen now requiring 15L HF. Pulmonary following closely along with infectious disease. Patient is afebrile and extremely anxious and concerned of overall well-being. Patient states her and close neighbor has been tested for covid and pending. Patient is maintained on covid medications and Baricitinib being started. Patient was outside the window for remdesivir. 12/09/2020 Patient is seen in follow up this morning and continues on 15L HF via NC and continues to have 02 saturations in the 80-90s and denies any worsening dyspnea. Patient has been started on Baricitinib with pulmonary and ID following closely. WBC trending down, most likely reaction to steroids, patient is afebrile and cultures reveal no growth. Review of systems: Constitutional: No reports of fatigue, reports fever, reports anxiety Cardiovascular: No reports of chest pain or palpitations Respiratory: reports of shortness of breath with no worsening GI: No reports of nausea, vomiting, or diarrhea : No reports of dysuria or retention Neurovascular: Reports generalized weakness PHYSICAL EXAMINATION: GENERAL: The patient is alert and oriented x3, not in any acute distress. Anxious, Well developed, well nourished. HEENT: Pupils are round and equally reacting to light. EOMI. No scleral icterus. No conjunctival pallor. Normocephalic, atraumatic. No pharyngeal erythema. No thyromegaly. CARDIOVASCULAR: S1 and S2 present. No murmurs, rubs, or gallops. PULMONARY: diminished breath sounds otherwise Chest is clear to auscultation, no wheezing or crackles. ABDOMEN: Soft, nontender, nondistended, normoactive bowel sounds. No palpable organomegaly. MUSCULOSKELETAL: No joint swelling or deformity. EXTREMITIES: No cyanosis, clubbing, or pedal edema. NEUROLOGICAL: Gross neurological examination did not reveal any focal deficits. diffusely weak SKIN: No rashes. Assessment and plan: -COVID-19 pneumonia: Patient maintained on Decadron, vitamin and zinc supplements, and Lovenox. Pulmonary following and also on Baricitinib -Mildly elevated troponin secondary to systemic inflammatory response cardiology evaluated the patient and 2d echo ordered -Leukocytosis: Due to assessment 1 -possible acute UTI, although suspicion is low and not having any burning or dysuria, possible asymptomatic bacteriuria. will dc IV ceftriaxone, ID following -hyponatremia hypovolemic hyponatremia, improved. -Hypothyroidism continue home dose of armour thyroid -DVT prophylaxis: Lovenox -Full code Plan: Continue current medications and wean FI02 as tolerated. PT/OT to evaluate the patient. Patient is weak and may possibly require rehab on discharge. Patient remains afebrile and 02 requirements continue at 15L HF. Maintained on Baricitinib. Encouraged oral intake. Pulmonary following. Sputum culture negative. Patient with continued elevated WBC most likely a component of being steroid induced. ID following. Monitor for worsening respiratory status. Objective - Vital Signs Vital signs: Vital Signs Temp 97.7 F 12/09/20 09:18 Pulse 87 12/09/20 09:18 Resp 22 12/09/20 09:18 BP 113/58 12/09/20 09:18 Pulse Ox 84 L 12/09/20 09:18 Intake & Output 12/08/20 12/09/20 12/09/20 18:59 06:59 18:59 Intake Total 680 Output Total 300 280 Balance 380 -280 Weight 74 kg Intake: IV 20 Invasive Line 1 20 Oral 660 Output: Urine 300 280 Other: Voiding Method Bedside Commode Bedside Commode Bedpan Bedpan # Voids 1 1 # Bowel Movements 1 - Labs CBC & Chem 7: 12/09/20 06:47 12/09/20 06:47 Labs: Abnormal Lab Results - Last 24 Hours (Table) 12/09/20 12/09/20 Range/Units 06:47 06:47 WBC 14.5 H (3.8-10.6) k/uL Neutrophils # 12.6 H (1.3-7.7) k/uL Sodium 135 L (137-145) mmol/L BUN 31 H (7-17) mg/dL Glucose 138 H (74-99) mg/dL C-Reactive Protein 14.9 H (<1.0) mg/dL Microbiology - Last 24 Hours (Table) 12/04/20 19:59 Blood Culture - Preliminary Blood No Growth after 96 hours 12/06/20 09:51 Gram Stain - Final Sputum Sputum Culture - Final
--- NOTE | 2020-12-10 06:43 | PN ---
PROGRESS NOTE DATE OF SERVICE: 12/09/2020 REASON FOR FOLLOWUP: COVID-19 pneumonia. INTERVAL HISTORY: Patient is afebrile. The patient is breathing comfortably. Patient denies having any chest pain. Did have a cough, not bringing up any sputum. No vomiting or diarrhea has been reported. PHYSICAL EXAMINATION: Blood pressure 139/62 with a pulse of 80, temperature 98.3. She is 93% on 15 L high- flow oxygen. General description is a middle-aged female lying in bed in no distress. Respiratory system: Unlabored breathing, decreased breath sounds in the bases. No wheeze. Heart S1, S2. Regular rate and rhythm. Abdomen soft. No tenderness. LABS: Hemoglobin is 11.1, white count of 14.5, BUN of 31, creatinine 0.54. DIAGNOSTIC IMPRESSION AND PLAN: Patient with acute COVID-19 pneumonia in this patient has shown some clinical improvement. The patient is currently on baricitinib, zinc and ascorbic acid to continue along with respiratory support and monitor clinical course closely. Continue supportive care. MMODL / IJN: [id number] /
[2020-12-10] MEDS: ZINC SULFATE 220 MG CAP PO SCH (08:48)
[2020-12-10] MEDS: ASCORBIC ACID 500 MG TAB PO SCH (08:48)
[2020-12-10] MEDS: amLODIPine 5 MG TAB PO SCH (08:48)
[2020-12-10] MEDS: THYROID, PORK 30 MG TAB PO SCH (08:48)
[2020-12-10] MEDS: dexAMETHasone 4 MG TAB PO SCH ×2 (08:48→20:07)
[2020-12-10] MEDS: CHOLECALCIFEROL 25 MCG (1000 IU) TABLET PO SCH (08:48)
[2020-12-10] MEDS: ASPIRIN 325 MG TAB PO SCH (08:48)
[2020-12-10] MEDS: ENOXAPARIN 40 MG/0.4 ML SYRINGE SQ SCH (08:48)
[2020-12-10] MEDS: FAMOTIDINE 20 MG TAB PO SCH ×2 (08:49→20:07)
--- NOTE | 2020-12-10 12:56 | P.PN ---
Subjective Progress Note Date: 12/10/20 Principal diagnosis: Acute hypoxic respiratory failure secondary to COVID-19 85-year-old female patient is less with COVID-19 related to pneumonia. The patient was having increased cough and fever. She is essentially a poor historian. Apparently she was having fever for past several days and sized exact onset of the symptoms are not clear to me at this point in time. Note that she is not vaccinated for COVID-19. She is currently hospitalized and she is on 2 L of oxygen by nasal cannula. She had a white cell count of 13.7 at time of admission and her sodium level was 140, troponins were 0.07 and 0.05 respectively 2, d-dimer is at 2.02 and a chest x-ray showed interstitial pneumonia bilaterally. Patient is currently on Decadron the patient also covered with Lovenox 40 mg subcu for DVT prophylaxis. The patient is also receiving normal saline at the rate of 100 mL an hour. No other complaints otherwise. Comorbid conditions include hypothyroidism and osteoarthritis. Reevaluated today on 12/06/2020, patient remains on 8 L high flow cannula with O2 saturation ranging anywhere between 88-96%. Patient seems to be comfortable, not in any distress. She is afebrile, she is hemodynamically stable blood pressure is 117/58. Labs today were unremarkable except she does have leukocytosis with WBC count of 16.9, d-dimer is 2.02 lites are normal renal profile is normal. Patient is on COVID-19 cocktail, she is on Lovenox 40 mg subcu daily, she is on Decadron, did not receive Remdesivir, as she was likely out of the therapeutic window. The patient is seen today at 50,021 in follow-up on the selective care unit. She is currently resting fairly comfortably in bed. Awake and alert. She is requiring 10 L high flow nasal cannula to maintain O2 saturation at 90%. She's been afebrile. Hemodynamically stable. Chest x-ray continues to revealed bilateral airspace disease, possible underlying pulmonary edema. Blood cultures reveal no growth to date. Sputum culture pending. White count 22.0. Hemoglobin 13.7. Lymphocytes 0.9. Sodium 136. Potassium 4.6. Creatinine 0.56. She remains on Decadron 6 mg twice a day, Lovenox. Initiated on ceftriaxone per medicine. Pro-calcitonin pending. Received IV diuretics today. The patient is seen today 12/08/2020 follow-up on the selective care unit. She is currently sitting up in a chair at the bedside. Awake and alert in no acute distress. She is up to 15 L high flow nasal cannula to maintain O2 saturation the high 80s low 90s. She is continued on Lovenox, Decadron, vitamin supplements. No evidence of infection. Blood cultures reveal no growth. Sputum culture revealed no growth. White count 19.2. Hemoglobin 12.4. Lymphocytes 1.1. D-dimer 2.41. Sodium 135. Potassium 4.3. Creatinine 0.51. Glucose 147. LDH 990. C-reactive protein 24.5. ProCalcitonin 0.65. The patient is see today 12/09/2020 in follow-up on the selective care unit. She is currently resting fairly comfortably in bed. Awake and alert in no acute distress. Breathing about the same today as compared to yesterday. Remains on 15 L high flow nasal cannula to remain saturations in the 80s and 90s. Blood culture reveals no growth. Sputum culture revealed no growth. White count 14.5. Hemoglobin 11.8. Lymphocytes 1.4. Sodium 135. Potassium 4.9. Creatinine 0.54. Glucose 138. C-reactive protein 14.9. She remains on Baricitinib, Decadron, Lovenox, vitamin supplements. The patient is seen today 12/10/2020 follow-up on selective care unit. She is currently sitting up at the bedside. Working with physical therapy. Maintaining O2 saturations in the low 90s on 15 L high flow nasal cannula. Afeb rile. Hemodynamically stable. Sputum culture revealed no growth. Blood cultures revealed no growth. No new labs today. Continuing on Baricitinib, Decadron, Lovenox, vitamin supplements. Objective - Vital Signs Vital signs: Vital Signs Temp 97.8 F 12/10/20 08:30 Pulse 73 12/10/20 08:30 Resp 19 12/10/20 08:30 BP 138/63 12/10/20 08:30 Pulse Ox 93 L 12/10/20 08:30 Intake & Output 12/09/20 12/10/20 12/10/20 18:59 06:59 18:59 Intake Total 580 240 Output Total 400 660 Balance 180 -660 240 Weight 74 kg 74.5 kg Intake: Oral 580 240 Output: Urine 400 660 Other: Voiding Method Bedside Commode Bedpan # Voids 1 # Bowel Movements 2 - Exam GENERAL: This is a pleasant 85-year-old female patient, hard of hearing, alert and oriented x3, in mild respiratory distress. On 15 L high flow nasal cannula. HEENT: Pupils are round and equally reacting to light. EOMI. No scleral icterus. No conjunctival pallor. Normocephalic, atraumatic. No pharyngeal erythema. No thyromegaly. CARDIOVASCULAR: S1 and S2 present. No murmurs, rubs, or gallops. PULMONARY: Lungs sounds with bilateral crackles in the posterior bases ABDOMEN: Soft, nontender, nondistended, normoactive bowel sounds. No palpable organomegaly. MUSCULOSKELETAL: No joint swelling or deformity. EXTREMITIES: No cyanosis, clubbing, or pedal edema. NEUROLOGICAL: Gross neurological examination did not reveal any focal deficits. SKIN: No rashes. - Labs CBC & Chem 7: 12/09/20 06:47 12/09/20 06:47 Labs: Microbiology - Last 24 Hours (Table) 12/04/20 19:59 Blood Culture - Preliminary Blood No Growth after 120 hours Assessment and Plan Assessment: 1 Acute COVID-19 related pneumonia. The patient is not vaccinated. Outside the window for Remdesivir. Initiated on Baricitinib 12/08/2020 2 Acute hypoxic respiratory failure secondary to above, currently on 15 L high flow nasal cannula 3 Hypothyroid 4 OA Plan: The patient was seen and evaluated by Dr. Leyva Working with physical therapy Continue Baricitinib, Decadron, Lovenox, vitamin supplements Titrate the FiO2 as tolerated Increase her activity as tolerated Condition is guarded We will continue to follow I, the cosigning physician, performed a history & physical examination of the patient. Lungs sounds crackles in the bilateral posterior bases. Maintaining good O2 saturations in the 90s on 15 L high flow nasal cannula. I discussed the assessment and plan of care with my nurse practitioner, Erlinda Deutsch. I attest to the above note as dictated by her.
[2020-12-10] MEDS: BARICITINIB 2 MG TABLET PO SCH (16:01)
--- NOTE | 2020-12-10 17:04 | P.PN ---
Subjective Progress Note Date: 12/10/20 Patient was an 85-year-old female came in with the complaints of cough and fever found to have COVID-19. Patient is a poor historian patient was having fever for last few days and unable to exactly given the date of fever symptoms patient was having congestion and sinusitis symptoms which started about 2 weeks ago. Exact onset of symptoms is not known. She didn't get her COVID-19 vaccine. She is presently on 2 L of oxygen saturating well chest x-ray findings are consistent with COVID-19. Patient was having minimal cough. Patient is presently having fevers d-dimer is not available which will be ordered. 12/06/2020 Patient is seen and evaluated in follow up this morning and is slightly anxious. Patient is continued on 7-8 L High flow via NC with 02 saturations ranging from 88-94%. Patient denies any worsening shortness of breath but is requiring more oxygen supplementation. Pulmonary and cardio following. 2d echo was done and awaiting read. Patient continues on lovenox, oral decadron, along with vitamin and zinc supplementation. Patient continues to have fevers with T max 103.1. WBC is 16.9 today. 12/07/2020 Patient is seen in follow up today and requiring more oxygen as pulse ox was in the low to mid 80's on 8 L high flow via NC. Increased to 10 L HF with pulmonary following closely. Patient continues on decadron oral bid along lovenox being started on vitamin and zinc supplements and ID consulted for further evaluation of Covid 19. Patient was empirically started on IV ceftriaxone and given and dose for possible UTI although suspicion is low and will discontinue. Appreciate ID input. WBC elevated at 22 although likely due to steroids and will monitor. Will add incentive spirometer as well. 12/08/2020 Patient is seen and evaluated in follow up today and oxygen saturations continue to worsen now requiring 15L HF. Pulmonary following closely along with infectious disease. Patient is afebrile and extremely anxious and concerned of overall well-being. Patient states her and close neighbor has been tested for covid and pending. Patient is maintained on covid medications and Baricitinib being started. Patient was outside the window for remdesivir. 12/09/2020 Patient is seen in follow up this morning and continues on 15L HF via NC and continues to have 02 saturations in the 80-90s and denies any worsening dyspnea. Patient has been started on Baricitinib with pulmonary and ID following closely. WBC trending down, most likely reaction to steroids, patient is afebrile and cultures reveal no growth. 12/10/2020 Patient is seen and evaluated in follow-up this morning continues to be on 15 L high flow nasal cannula with pulmonary following closely. Patient is up and working with physical therapy today and able to sit up in the chair. Patient is maintained on Baricitinib along with IV dexamethasone, subcutaneous Lovenox, vitamin and zinc supplements and will continue. Wean FiO2 as tolerated. Patient has incentive spirometer at the bedside and recommend using at least 10 times every hour while awake. Patient also encouraged to continue with coughing and deep breathing. Labs: White blood count trending down at 14.5 and hemoglobin is 11.8, platelets are 381, sodium is 135 with a potassium of 4.9, BUN is 31 and creatinine is 0.54, CRP trending down at 14.9. Review of systems: Constitutional: No reports of fatigue, no reports of fever, reports anxiety and wanting to go home Cardiovascular: No reports of chest pain or palpitations Respiratory: reports of shortness of breath with no worsening GI: No reports of nausea, vomiting, or diarrhea : No reports of dysuria or retention Neurovascular: Reports generalized weakness PHYSICAL EXAMINATION: GENERAL: The patient is alert and oriented x3, sitting up in the chair today. An xious, Well developed, well nourished. Temp is 97.8F, pulse is 73, respirations are 19, blood pressure is 138/63, oxygen saturation is 93% on 15 L high flow via nasal cannula HEENT: Pupils are round and equally reacting to light. EOMI. No scleral icterus. No conjunctival pallor. Normocephalic, atraumatic. No pharyngeal erythema. No thyromegaly. CARDIOVASCULAR: S1 and S2 muffled PULMONARY: diminished breath sounds at the bases with no wheezing or rhonchi noted, small bilateral crackles noted at the bases ABDOMEN: Soft, nontender, nondistended, normoactive bowel sounds. No palpable organomegaly. MUSCULOSKELETAL: No joint swelling or deformity. EXTREMITIES: No cyanosis, clubbing, or pedal edema. NEUROLOGICAL: Gross neurological examination did not reveal any focal deficits. diffusely weak SKIN: No rashes. Assessment and plan: -COVID-19 pneumonia: Patient maintained on Decadron, vitamin and zinc supplements, and Lovenox. Pulmonary following and also on Baricitinib -Mildly elevated troponin secondary to systemic inflammatory response cardiology evaluated the patient and 2d echo ordered -Leukocytosis: Due to assessment 1 -possible acute UTI, although suspicion is low and not having any burning or dysuria, possible asymptomatic bacteriuria. will dc IV ceftriaxone, ID following -hyponatremia hypovolemic hyponatremia, improved. -Hypothyroidism continue home dose of armour thyroid -DVT prophylaxis: Lovenox -Full code Plan: Continue current medications and wean FI02 as tolerated. PT/OT following and working with the patient. Patient remains afebrile and 02 requirements continue at 15L HF. Maintained on Baricitinib. Encouraged oral intake. Pulmonary following. Sputum culture negative. Patient with continued elevated WBC most likely a component of being steroid induced. ID following. Monitor for worsening respiratory status. Prognosis remains guarded and will continue to monitor closely. Objective - Vital Signs Vital signs: Vital Signs Temp 97.8 F 12/10/20 08:30 Pulse 73 12/10/20 08:30 Resp 19 12/10/20 08:30 BP 138/63 12/10/20 08:30 Pulse Ox 93 L 12/10/20 08:30 Intake & Output 12/09/20 12/10/20 12/10/20 18:59 06:59 18:59 Intake Total 580 240 Output Total 400 660 Balance 180 -660 240 Weight 74 kg 74.5 kg Intake: Oral 580 240 Output: Urine 400 660 Other: Voiding Method Bedside Commode Bedpan # Voids 1 # Bowel Movements 2 - Labs CBC & Chem 7: 12/09/20 06:47 12/09/20 06:47 Labs: Microbiology - Last 24 Hours (Table) 12/04/20 19:59 Blood Culture - Preliminary Blood No Growth after 120 hours
--- NOTE | 2020-12-10 17:47 | PN ---
PROGRESS NOTE DATE OF SERVICE: 12/10/2020 REASON FOR FOLLOWUP: COVID-19 pneumonia. INTERVAL HISTORY: Patient is afebrile. The patient is breathing more comfortably. She is currently down to 11 L nasal cannula oxygen. Denies having any chest pain. Cough has decreased intensity. No nausea, no vomiting. No abdominal pain or diarrhea. PHYSICAL EXAMINATION: Blood pressure 121/57, pulse of 79, temperature is 97.6. She is 96% on 11 L high-flow oxygen. General description is an elderly female lying in bed in no distress. Respiratory system: Unlabored breathing, decreased intensity of breath sounds. No wheeze. Heart S1, S2. Regular rate and rhythm. Abdomen soft, no tenderness. LABS: No new labs have been obtained today. Sputum culture has been negative. DIAGNOSTIC IMPRESSION AND PLAN: Patient with acute COVID-19 pneumonia with no evidence of any secondary bacterial pneumonia. Patient seemed to be clinically responding to the steroids, baricitinib, zinc and ascorbic acid to continue along with respiratory support. No need for systemic antibiotic. MMODL / IJN: [id number] /
[2020-12-10] MEDS: MELATONIN 3 MG TABLET PO PRN (20:07)
[2020-12-10] MEDS: ALPRAZolam 0.25 MG TAB PO PRN (20:07)
[2020-12-10] MEDS: ACETAMINOPHEN TAB 325 MG TAB PO PRN (20:07)
--- NOTE | 2020-12-11 07:37 | XR ---
EXAMINATION TYPE: XR chest 1V portable DATE OF EXAM: 12/11/2020 COMPARISON: Chest x-ray 12/08/2020 HISTORY: Covid pneumonia TECHNIQUE: Single frontal view of the chest is obtained. FINDINGS: Findings are similar to prior exam. IMPRESSION: Findings consistent with Covid pneumonia.
[2020-12-11] MEDS: amLODIPine 5 MG TAB PO SCH (08:49)
[2020-12-11] MEDS: ASPIRIN 325 MG TAB PO SCH (08:49)
[2020-12-11] MEDS: CHOLECALCIFEROL 25 MCG (1000 IU) TABLET PO SCH (08:49)
[2020-12-11] MEDS: FAMOTIDINE 20 MG TAB PO SCH ×2 (08:50→20:26)
[2020-12-11] MEDS: THYROID, PORK 30 MG TAB PO SCH (08:50)
[2020-12-11] MEDS: ZINC SULFATE 220 MG CAP PO SCH (08:50)
[2020-12-11] MEDS: dexAMETHasone 4 MG TAB PO SCH ×2 (08:50→20:26)
[2020-12-11] MEDS: ENOXAPARIN 40 MG/0.4 ML SYRINGE SQ SCH ×2 (08:51→20:26)
[2020-12-11 09:42] LABS: Basophils % (A) 0 %; Eosinophils % (A) 0 %; Lymphocytes # (A) 1.4 k/uL (1.0-4.8); Lymphocytes % (A) 10 %; MCH 30.6 pg (25.0-35.0); MCHC 32.5 g/dL (31.0-37.0); MCV 94.1 fL (80.0-100.0); Mean Platelet Volume 7.8; Monocytes # (A) 0.4 k/uL (0-1.0); Monocytes % (A) 3 %; Neutrophils # (A) 12.3 k/uL (1.3-7.7); Neutrophils % (A) 87 %; Platelet Count 482 k/uL (150-450); RBC 4.25 m/uL (3.80-5.40); RDW 13.4 % (11.5-15.5); WBC 14.3 k/uL (3.8-10.6)
[2020-12-11 09:49] LABS: ALT 49 U/L (4-34); AST 44 U/L (14-36); African American GFR (CKD) >90 (>60 ml/min/1.73 sqM); Albumin 3.3 g/dL (3.5-5.0); Alkaline Phosphatase 80 U/L (38-126); Anion Gap 9 mmol/L; Blood Urea Nitrogen 31 mg/dL (7-17); C Reactive Protein 4.3 mg/dL (<1.0); Calcium 9.6 mg/dL (8.4-10.2); Carbon Dioxide 28 mmol/L (22-30); Chloride 96 mmol/L (98-107); Glucose 140 mg/dL (74-99); LDH 933 U/L (313-618); Non-African American GFR(CKD) 82 (>60 ml/min/1.73 sqM); Potassium 4.9 mmol/L (3.5-5.1); Sodium 133 mmol/L (137-145); Total Bilirubin 0.6 mg/dL (0.2-1.3); Total Protein 6.6 g/dL (6.3-8.2)
[2020-12-11] MEDS: ASCORBIC ACID 500 MG TAB PO SCH (12:08)
--- NOTE | 2020-12-11 12:18 | P.PN ---
Subjective Progress Note Date: 12/11/20 Principal diagnosis: Acute hypoxic respiratory failure secondary to COVID-19 85-year-old female patient is less with COVID-19 related to pneumonia. The patient was having increased cough and fever. She is essentially a poor historian. Apparently she was having fever for past several days and sized exact onset of the symptoms are not clear to me at this point in time. Note that she is not vaccinated for COVID-19. She is currently hospitalized and she is on 2 L of oxygen by nasal cannula. She had a white cell count of 13.7 at time of admission and her sodium level was 140, troponins were 0.07 and 0.05 respectively 2, d-dimer is at 2.02 and a chest x-ray showed interstitial pneumonia bilaterally. Patient is currently on Decadron the patient also covered with Lovenox 40 mg subcu for DVT prophylaxis. The patient is also receiving normal saline at the rate of 100 mL an hour. No other complaints otherwise. Comorbid conditions include hypothyroidism and osteoarthritis. Reevaluated today on 12/06/2020, patient remains on 8 L high flow cannula with O2 saturation ranging anywhere between 88-96%. Patient seems to be comfortable, not in any distress. She is afebrile, she is hemodynamically stable blood pressure is 117/58. Labs today were unremarkable except she does have leukocytosis with WBC count of 16.9, d-dimer is 2.02 lites are normal renal profile is normal. Patient is on COVID-19 cocktail, she is on Lovenox 40 mg subcu daily, she is on Decadron, did not receive Remdesivir, as she was likely out of the therapeutic window. The patient is seen today at 50,021 in follow-up on the selective care unit. She is currently resting fairly comfortably in bed. Awake and alert. She is requiring 10 L high flow nasal cannula to maintain O2 saturation at 90%. She's been afebrile. Hemodynamically stable. Chest x-ray continues to revealed bilateral airspace disease, possible underlying pulmonary edema. Blood cultures reveal no growth to date. Sputum culture pending. White count 22.0. Hemoglobin 13.7. Lymphocytes 0.9. Sodium 136. Potassium 4.6. Creatinine 0.56. She remains on Decadron 6 mg twice a day, Lovenox. Initiated on ceftriaxone per medicine. Pro-calcitonin pending. Received IV diuretics today. The patient is seen today 12/08/2020 follow-up on the selective care unit. She is currently sitting up in a chair at the bedside. Awake and alert in no acute distress. She is up to 15 L high flow nasal cannula to maintain O2 saturation the high 80s low 90s. She is continued on Lovenox, Decadron, vitamin supplements. No evidence of infection. Blood cultures reveal no growth. Sputum culture revealed no growth. White count 19.2. Hemoglobin 12.4. Lymphocytes 1.1. D-dimer 2.41. Sodium 135. Potassium 4.3. Creatinine 0.51. Glucose 147. LDH 990. C-reactive protein 24.5. ProCalcitonin 0.65. The patient is see today 12/09/2020 in follow-up on the selective care unit. She is currently resting fairly comfortably in bed. Awake and alert in no acute distress. Breathing about the same today as compared to yesterday. Remains on 15 L high flow nasal cannula to remain saturations in the 80s and 90s. Blood culture reveals no growth. Sputum culture revealed no growth. White count 14.5. Hemoglobin 11.8. Lymphocytes 1.4. Sodium 135. Potassium 4.9. Creatinine 0.54. Glucose 138. C-reactive protein 14.9. She remains on Baricitinib, Decadron, Lovenox, vitamin supplements. The patient is seen today 12/10/2020 follow-up on selective care unit. She is currently sitting up at the bedside. Working with physical therapy. Maintaining O2 saturations in the low 90s on 15 L high flow nasal cannula. Afeb rile. Hemodynamically stable. Sputum culture revealed no growth. Blood cultures revealed no growth. No new labs today. Continuing on Baricitinib, Decadron, Lovenox, vitamin supplements. Patient seen today 12/11/2020 in follow-up on the selective care unit. She is currently resting comfortably in bed. Awake and alert in no acute distress. He denies any worsening shortness of breath, cough or congestion. She is down to 8 L high flow nasal cannula. Chest x-ray showing some slight improvement in the bilateral patchy infiltrates. She is continued on Baricitinib, Decadron, Lovenox, vitamins. Blood culture revealed no growth. Sputum culture revealed no growth. White count 14.3. Hemoglobin 13.0. D-dimer 6.79. Sodium 133. Potassium 4.9. Bicarb 28. Creatinine 0.66. Glucose 140. AST 44, ALT 49. LDH 933. C-reactive protein 4.3. Objective - Vital Signs Vital signs: Vital Signs Temp 98.3 F 12/11/20 08:58 Pulse 98 12/11/20 08:58 Resp 20 12/11/20 08:58 BP 167/85 12/11/20 08:58 Pulse Ox 93 L 12/11/20 08:58 Intake & Output 12/10/20 12/11/20 12/11/20 18:59 06:59 18:59 Intake Total 1200 80 Balance 1200 80 Weight 75.8 kg Intake: Oral 1200 80 Other: Voiding Method Bedside Commode Bedside Commode Bedpan # Voids 1 - Exam GENERAL: This is a pleasant 85-year-old female patient, hard of hearing, alert and oriented x3, in no acute distress. On 8 L high flow nasal cannula. HEENT: Pupils are round and equally reacting to light. EOMI. No scleral icterus. No conjunctival pallor. Normocephalic, atraumatic. No pharyngeal erythema. No thyromegaly. CARDIOVASCULAR: S1 and S2 present. No murmurs, rubs, or gallops. PULMONARY: Lungs sounds with bilateral crackles in the posterior bases ABDOMEN: Soft, nontender, nondistended, normoactive bowel sounds. No palpable organomegaly. MUSCULOSKELETAL: No joint swelling or deformity. EXTREMITIES: No cyanosis, clubbing, or pedal edema. NEUROLOGICAL: Gross neurological examination did not reveal any focal deficits. SKIN: No rashes. - Labs CBC & Chem 7: 12/11/20 09:04 12/11/20 09:04 Labs: Abnormal Lab Results - Last 24 Hours (Table) 12/11/20 12/11/20 12/11/20 Range/Units 09:04 09:04 09:04 WBC 14.3 H (3.8-10.6) k/uL Plt Count 482 H (150-450) k/uL Neutrophils # 12.3 H (1.3-7.7) k/uL D-Dimer 6.79 H (<0.60) mg/L FEU Sodium 133 L (137-145) mmol/L Chloride 96 L (98-107) mmol/L BUN 31 H (7-17) mg/dL Glucose 140 H (74-99) mg/dL AST 44 H (14-36) U/L ALT 49 H (4-34) U/L Lactate Dehydrogenase 933 H (313-618) U/L C-Reactive Protein 4.3 H (<1.0) mg/dL Albumin 3.3 L (3.5-5.0) g/dL Microbiology - Last 24 Hours (Table) 12/04/20 19:59 Blood Culture - Final Blood No Growth after 144 hours Assessment and Plan Assessment: 1 Acute COVID-19 related pneumonia. The patient is not vaccinated. Outside the window for Remdesivir. Initiated on Baricitinib 12/08/2020 2 Acute hypoxic respiratory failure secondary to above, currently on 8 L high flow nasal cannula 3 Hypothyroid 4 OA Plan: The patient was seen and evaluated by Dr. Leyva Chest x-ray and labs reviewed Continue Baricitinib, Decadron, vitamin supplements Increased Lovenox to 40 mg twice a day Titrate the FiO2 as tolerated Increase her activity as tolerated Condition is guarded We will continue to follow I, the cosigning physician, performed a history & physical examination of the patient. Lungs sounds crackles in the bilateral posterior bases. Maintaining good O2 saturations in the 90s on 8 L high flow nasal cannula. I discussed the assessment and plan of care with my nurse practitioner, Erlinda Deutsch. I attest to the above note as dictated by her.
--- NOTE | 2020-12-11 14:07 | P.PN ---
Subjective Progress Note Date: 12/11/20 Patient was an 85-year-old female came in with the complaints of cough and fever found to have COVID-19. Patient is a poor historian patient was having fever for last few days and unable to exactly given the date of fever symptoms patient was having congestion and sinusitis symptoms which started about 2 weeks ago. Exact onset of symptoms is not known. She didn't get her COVID-19 vaccine. She is presently on 2 L of oxygen saturating well chest x-ray findings are consistent with COVID-19. Patient was having minimal cough. Patient is presently having fevers d-dimer is not available which will be ordered. 12/06/2020 Patient is seen and evaluated in follow up this morning and is slightly anxious. Patient is continued on 7-8 L High flow via NC with 02 saturations ranging from 88-94%. Patient denies any worsening shortness of breath but is requiring more oxygen supplementation. Pulmonary and cardio following. 2d echo was done and awaiting read. Patient continues on lovenox, oral decadron, along with vitamin and zinc supplementation. Patient continues to have fevers with T max 103.1. WBC is 16.9 today. 12/07/2020 Patient is seen in follow up today and requiring more oxygen as pulse ox was in the low to mid 80's on 8 L high flow via NC. Increased to 10 L HF with pulmonary following closely. Patient continues on decadron oral bid along lovenox being started on vitamin and zinc supplements and ID consulted for further evaluation of Covid 19. Patient was empirically started on IV ceftriaxone and given and dose for possible UTI although suspicion is low and will discontinue. Appreciate ID input. WBC elevated at 22 although likely due to steroids and will monitor. Will add incentive spirometer as well. 12/08/2020 Patient is seen and evaluated in follow up today and oxygen saturations continue to worsen now requiring 15L HF. Pulmonary following closely along with infectious disease. Patient is afebrile and extremely anxious and concerned of overall well-being. Patient states her and close neighbor has been tested for covid and pending. Patient is maintained on covid medications and Baricitinib being started. Patient was outside the window for remdesivir. 12/09/2020 Patient is seen in follow up this morning and continues on 15L HF via NC and continues to have 02 saturations in the 80-90s and denies any worsening dyspnea. Patient has been started on Baricitinib with pulmonary and ID following closely. WBC trending down, most likely reaction to steroids, patient is afebrile and cultures reveal no growth. 12/10/2020 Patient is seen and evaluated in follow-up this morning continues to be on 15 L high flow nasal cannula with pulmonary following closely. Patient is up and working with physical therapy today and able to sit up in the chair. Patient is maintained on Baricitinib along with IV dexamethasone, subcutaneous Lovenox, vitamin and zinc supplements and will continue. Wean FiO2 as tolerated. Patient has incentive spirometer at the bedside and recommend using at least 10 times every hour while awake. Patient also encouraged to continue with coughing and deep breathing. 12/11/2020 Patient seen on follow-up she is sitting up the side of the bed, talking to family on the phone. She does not appear to be in any acute distress. O2 requi rements coming down 7 L nasal cannula today she is afebrile and hemodynamically stable she is continued on Decadron, Covid vitamins. Encouraged to use the incentive spirometer. She is anxious to go home. Labs: White blood count trending down at 14.5 and hemoglobin is 11.8, platelets are 381, sodium is 135 with a potassium of 4.9, BUN is 31 and creatinine is 0.54, CRP trending down at 14.9. Review of systems: Constitutional: No reports of fatigue, no reports of fever, reports anxiety and wanting to go home Cardiovascular: No reports of chest pain or palpitations Respiratory: reports of shortness of breath with no worsening GI: No reports of nausea, vomiting, or diarrhea : No reports of dysuria or retention Neurovascular: Reports generalized weakness PHYSICAL EXAMINATION: GENERAL: The patient is alert and oriented x3, sitting up in the chair today. Anxious, Well developed, well nourished. On 7 L high flow nasal cannula HEENT: Pupils are round and equally reacting to light. EOMI. No scleral icterus. No conjunctival pallor. Normocephalic, atraumatic. No pharyngeal erythema. No thyromegaly. CARDIOVASCULAR: S1 and S2 muffled PULMONARY: diminished breath sounds at the bases with no wheezing or rhonchi noted, small bilateral crackles noted at the bases ABDOMEN: Soft, nontender, nondistended, normoactive bowel sounds. No palpable organomegaly. MUSCULOSKELETAL: No joint swelling or deformity. EXTREMITIES: No cyanosis, clubbing, or pedal edema. NEUROLOGICAL: Gross neurological examination did not reveal any focal deficits. diffusely weak SKIN: No rashes. Assessment and plan: -COVID-19 pneumonia: Patient maintained on Decadron, vitamin and zinc supplements, and Lovenox. Pulmonary following and also on Baricitinib -Mildly elevated troponin secondary to systemic inflammatory response cardiology evaluated the patient and 2d echo ordered -Leukocytosis: Due to assessment 1 -possible acute UTI, although suspicion is low and not having any burning or dysuria, possible asymptomatic bacteriuria. will dc IV ceftriaxone, ID following -hyponatremia hypovolemic hyponatremia, improved. -Hypothyroidism continue home dose of armour thyroid -DVT prophylaxis: Lovenox -Full code Plan: Continue current medications and wean FI02 as tolerated, O2 requirements down to 7 L.. PT/OT following and working with the patient. Continue on Decadron and Covid vitamins. Maintained on Baricitinib. Encouraged oral intake. Pulmonary following. Sputum culture negative. Patient with continued elevated WBC most likely a component of being steroid induced. ID following. Monitor for worsening respiratory status. Prognosis remains guarded and will continue to monitor closely. Objective - Vital Signs Vital signs: Vital Signs Temp 98.2 F 12/11/20 12:25 Pulse 77 12/11/20 12:25 Resp 16 12/11/20 12:25 BP 137/61 12/11/20 12:25 Pulse Ox 97 12/11/20 12:25 Intake & Output 12/10/20 12/11/20 12/11/20 18:59 06:59 18:59 Intake Total 1200 200 Balance 1200 200 Weight 75.8 kg Intake: Oral 1200 200 Other: Voiding Method Bedside Commode Bedside Commode Bedpan # Voids 1 - Labs CBC & Chem 7: 12/11/20 09:04 12/11/20 09:04 Labs: Abnormal Lab Results - Last 24 Hours (Table) 12/11/20 12/11/20 12/11/20 Range/Units 09:04 09:04 09:04 WBC 14.3 H (3.8-10.6) k/uL Plt Count 482 H (150-450) k/uL Neutrophils # 12.3 H (1.3-7.7) k/uL D-Dimer 6.79 H (<0.60) mg/L FEU Sodium 133 L (137-145) mmol/L Chloride 96 L (98-107) mmol/L BUN 31 H (7-17) mg/dL Glucose 140 H (74-99) mg/dL AST 44 H (14-36) U/L ALT 49 H (4-34) U/L Lactate Dehydrogenase 933 H (313-618) U/L C-Reactive Protein 4.3 H (<1.0) mg/dL Albumin 3.3 L (3.5-5.0) g/dL Microbiology - Last 24 Hours (Table) 12/04/20 19:59 Blood Culture - Final Blood No Growth after 144 hours
[2020-12-11] MEDS: BARICITINIB 2 MG TABLET PO SCH (16:43)
--- NOTE | 2020-12-11 16:56 | PN ---
PROGRESS NOTE DATE OF SERVICE: 12/11/2020 REASON FOR FOLLOWUP: COVID-19 pneumonia. INTERVAL HISTORY: Patient is afebrile. The patient is breathing more comfortably. The patient denies having any chest pain. She did have a cough, not bringing any sputum. No nausea. No vomiting. No abdominal pain. No diarrhea. She is currently down to 7 L nasal cannula. PHYSICAL EXAMINATION: Blood pressure 137/61 with a pulse of 77, temperature 98.2. She is 95% on L nasal cannula. General description is an elderly female up in the bed in no distress. Respiratory system: Unlabored breathing. Clear to auscultation with no wheeze or crackles. Heart S1, S2. Regular rate and rhythm. Abdomen soft, no tenderness. LABS: Hemoglobin is 13.1, white count 14.3. D. dimer is up to 6.79, creatinine 0.66. DIAGNOSTIC IMPRESSION AND PLAN: Patient with acute COVID-19 pneumonia. Patient is currently on baricitinib, and dexamethasone, zinc and ascorbic acid, Lovenox can be switched to twice a day. D-dimer will be monitored closely and continue supportive care. MMODL / IJN: [id number] /
[2020-12-11] MEDS: ACETAMINOPHEN TAB 325 MG TAB PO PRN (20:26)
[2020-12-11] MEDS: MELATONIN 3 MG TABLET PO PRN (20:26)
[2020-12-11] MEDS: ALPRAZolam 0.25 MG TAB PO PRN (20:26)
[2020-12-12] MEDS: CHOLECALCIFEROL 25 MCG (1000 IU) TABLET PO SCH (09:24)
[2020-12-12] MEDS: amLODIPine 5 MG TAB PO SCH (09:24)
[2020-12-12] MEDS: ASPIRIN 325 MG TAB PO SCH (09:24)
[2020-12-12] MEDS: ASCORBIC ACID 500 MG TAB PO SCH (09:24)
[2020-12-12] MEDS: FAMOTIDINE 20 MG TAB PO SCH ×2 (09:24→20:52)
[2020-12-12] MEDS: ZINC SULFATE 220 MG CAP PO SCH (09:24)
[2020-12-12] MEDS: dexAMETHasone 4 MG TAB PO SCH ×2 (09:25→20:52)
[2020-12-12] MEDS: THYROID, PORK 30 MG TAB PO SCH (09:25)
[2020-12-12] MEDS: ENOXAPARIN 40 MG/0.4 ML SYRINGE SQ SCH ×2 (09:25→20:52)
--- NOTE | 2020-12-12 12:47 | P.PN ---
Subjective Progress Note Date: 12/12/20 Patient was an 85-year-old female came in with the complaints of cough and fever found to have COVID-19. Patient is a poor historian patient was having fever for last few days and unable to exactly given the date of fever symptoms patient was having congestion and sinusitis symptoms which started about 2 weeks ago. Exact onset of symptoms is not known. She didn't get her COVID-19 vaccine. She is presently on 2 L of oxygen saturating well chest x-ray findings are consistent with COVID-19. Patient was having minimal cough. Patient is presently having fevers d-dimer is not available which will be ordered. 12/06/2020 Patient is seen and evaluated in follow up this morning and is slightly anxious. Patient is continued on 7-8 L High flow via NC with 02 saturations ranging from 88-94%. Patient denies any worsening shortness of breath but is requiring more oxygen supplementation. Pulmonary and cardio following. 2d echo was done and awaiting read. Patient continues on lovenox, oral decadron, along with vitamin and zinc supplementation. Patient continues to have fevers with T max 103.1. WBC is 16.9 today. 12/07/2020 Patient is seen in follow up today and requiring more oxygen as pulse ox was in the low to mid 80's on 8 L high flow via NC. Increased to 10 L HF with pulmonary following closely. Patient continues on decadron oral bid along lovenox being started on vitamin and zinc supplements and ID consulted for further evaluation of Covid 19. Patient was empirically started on IV ceftriaxone and given and dose for possible UTI although suspicion is low and will discontinue. Appreciate ID input. WBC elevated at 22 although likely due to steroids and will monitor. Will add incentive spirometer as well. 12/08/2020 Patient is seen and evaluated in follow up today and oxygen saturations continue to worsen now requiring 15L HF. Pulmonary following closely along with infectious disease. Patient is afebrile and extremely anxious and concerned of overall well-being. Patient states her and close neighbor has been tested for covid and pending. Patient is maintained on covid medications and Baricitinib being started. Patient was outside the window for remdesivir. 12/09/2020 Patient is seen in follow up this morning and continues on 15L HF via NC and continues to have 02 saturations in the 80-90s and denies any worsening dyspnea. Patient has been started on Baricitinib with pulmonary and ID following closely. WBC trending down, most likely reaction to steroids, patient is afebrile and cultures reveal no growth. 12/10/2020 Patient is seen and evaluated in follow-up this morning continues to be on 15 L high flow nasal cannula with pulmonary following closely. Patient is up and working with physical therapy today and able to sit up in the chair. Patient is maintained on Baricitinib along with IV dexamethasone, subcutaneous Lovenox, vitamin and zinc supplements and will continue. Wean FiO2 as tolerated. Patient has incentive spirometer at the bedside and recommend using at least 10 times every hour while awake. Patient also encouraged to continue with coughing and deep breathing. 12/11/2020 Patient seen on follow-up she is sitting up the side of the bed, talking to family on the phone. She does not appear to be in any acute distress. O2 requi rements coming down 7 L nasal cannula today she is afebrile and hemodynamically stable she is continued on Decadron, Covid vitamins. Encouraged to use the incentive spirometer. She is anxious to go home. 12/12/2020 Patient seen on reevaluation, she is sitting up at the side of the bed, is anxious to go home states she is feeling better. She remains on 4 L nasal cannula saturating above 90%, her d-dimer did trend up to 6.79 today, she is not complaining of any chest pain. No nausea vomiting or diarrhea. Afebrile. 2-D echocardiogram showing LVEF 50-55%, RV is mildly enlarged mild to moderate TR mild to moderate pulmonary hypertension RVSP 47.95 mmHg. Review of systems: Constitutional: Negative Cardiovascular: No reports of chest pain or palpitations Respiratory: Exertional dyspnea : No reports of dysuria or retention Neurovascular: Reports generalized weakness PHYSICAL EXAMINATION: GENERAL: The patient is alert and oriented x3, sitting up in the chair today. Anxious, Well developed, well nourished. On 7 L high flow nasal cannula HEENT: Pupils are round and equally reacting to light. EOMI. No scleral icterus. No conjunctival pallor. Normocephalic, atraumatic. No pharyngeal erythema. No thyromegaly. CARDIOVASCULAR: S1 and S2 muffled PULMONARY: diminished breath sounds at the bases with no wheezing or rhonchi noted, small bilateral crackles noted at the bases ABDOMEN: Soft, nontender, nondistended, normoactive bowel sounds. No palpable organomegaly. MUSCULOSKELETAL: No joint swelling or deformity. EXTREMITIES: No cyanosis, clubbing, or pedal edema. NEUROLOGICAL: Gross neurological examination did not reveal any focal deficits. diffusely weak SKIN: No rashes. Assessment and plan: -COVID-19 pneumonia: Patient maintained on Decadron, vitamin and zinc supplements, and Lovenox. Pulmonary following and also on Baricitinib - elevated d-dimer, trending up asymptomatic bacteriuria. will dc IV ceftriaxone, ID following -hyponatremia hypovolemic hyponatremia, improved. -Possible chronic CHF, 2-D echo showing LVEF 50-55% -Hypothyroidism continue home dose of armour thyroid -Mild transaminitis, possibly secondary to Covid infection -Hyponatremia- -DVT prophylaxis: Lovenox -Full code Plan: Clinically patient is doing well, she remains on 4 L nasal cannula saturating above 90% continues on Decadron, Covid vitamins, has received baricitinab. Her d-dimer is trending up, 6.79 yesterday, we'll check a CT angiogram of the chest and duodena stop the lower extremities. Sputum and blood cultures negative. Patient is being followed by pulmonary and ID. Her respiratory status is stable at this time she is anxious to go home, follow-up with CT angiogram of the chest and venous Doppler of the lower extremities.DVT prophylaxis subcutaneous Lovenox 40 twice daily. We will continue to follow, further recommendations pending clinical course Objective - Vital Signs Vital signs: Vital Signs Temp 98.4 F 12/12/20 09:35 Pulse 76 12/12/20 09:35 Resp 18 12/12/20 09:35 BP 132/58 12/12/20 09:35 Pulse Ox 94 L 12/12/20 09:35 Intake & Output 12/11/20 12/12/20 12/12/20 18:59 06:59 18:59 Intake Total 480 120 Balance 480 120 Weight 77 kg Intake: Oral 480 120 Other: Voiding Method Bedside Commode Bedside Commode Bedside Commode # Voids 3 1 # Bowel Movements 1 - Labs CBC & Chem 7: 12/11/20 09:04 12/11/20 09:04
--- NOTE | 2020-12-12 14:40 | P.PN ---
Subjective Progress Note Date: 12/12/20 Principal diagnosis: Acute COVID-19 pneumonia, acute hypoxic respiratory failure 85-year-old female patient is less with COVID-19 related to pneumonia. The patient was having increased cough and fever. She is essentially a poor historian. Apparently she was having fever for past several days and sized exact onset of the symptoms are not clear to me at this point in time. Note that she is not vaccinated for COVID-19. She is currently hospitalized and she is on 2 L of oxygen by nasal cannula. She had a white cell count of 13.7 at time of admission and her sodium level was 140, troponins were 0.07 and 0.05 respectively 2, d-dimer is at 2.02 and a chest x-ray showed interstitial pneumonia bilaterally. Patient is currently on Decadron the patient also covered with Lovenox 40 mg subcu for DVT prophylaxis. The patient is also receiving normal saline at the rate of 100 mL an hour. No other complaints otherwise. Comorbid conditions include hypothyroidism and osteoarthritis. Reevaluated today on 12/06/2020, patient remains on 8 L high flow cannula with O2 saturation ranging anywhere between 88-96%. Patient seems to be comfortable, not in any distress. She is afebrile, she is hemodynamically stable blood pressure is 117/58. Labs today were unremarkable except she does have leukocytosis with WBC count of 16.9, d-dimer is 2.02 lites are normal renal profile is normal. Patient is on COVID-19 cocktail, she is on Lovenox 40 mg subcu daily, she is on Decadron, did not receive Remdesivir, as she was likely out of the therapeutic window. The patient is seen today at 50,021 in follow-up on the selective care unit. She is currently resting fairly comfortably in bed. Awake and alert. She is requiring 10 L high flow nasal cannula to maintain O2 saturation at 90%. She's been afebrile. Hemodynamically stable. Chest x-ray continues to revealed bilat eral airspace disease, possible underlying pulmonary edema. Blood cultures reveal no growth to date. Sputum culture pending. White count 22.0. Hemoglobin 13.7. Lymphocytes 0.9. Sodium 136. Potassium 4.6. Creatinine 0.56. She remains on Decadron 6 mg twice a day, Lovenox. Initiated on ceftr iaxone per medicine. Pro-calcitonin pending. Received IV diuretics today. The patient is seen today 12/08/2020 follow-up on the selective care unit. She is currently sitting up in a chair at the bedside. Awake and alert in no acute distress. She is up to 15 L high flow nasal cannula to maintain O2 saturation the high 80s low 90s. She is continued on Lovenox, Decadron, vitamin supplements. No evidence of infection. Blood cultures reveal no growth. Sputum culture revealed no growth. White count 19.2. Hemoglobin 12.4. Lymphocytes 1.1. D-dimer 2.41. Sodium 135. Potassium 4.3. Creatinine 0.51. Glucose 147. LDH 990. C-reactive protein 24.5. ProCalcitonin 0.65. The patient is see today 12/09/2020 in follow-up on the selective care unit. She is currently resting fairly comfortably in bed. Awake and alert in no acute distress. Breathing about the same today as compared to yesterday. Remains on 15 L high flow nasal cannula to remain saturations in the 80s and 90s. Blood culture reveals no growth. Sputum culture revealed no growth. White count 14.5. Hemoglobin 11.8. Lymphocytes 1.4. Sodium 135. Potassium 4.9. Creatinine 0.54. Glucose 138. C-reactive protein 14.9. She remains on Baricitinib, Decadron, Lovenox, vitamin supplements. The patient is seen today 12/10/2020 follow-up on selective care unit. She is currently sitting up at the bedside. Working with physical therapy. Maintaining O2 saturations in the low 90s on 15 L high flow nasal cannula. Afebrile. Hemodynamically stable. Sputum culture revealed no growth. Blood cultures revealed no growth. No new labs today. Continuing on Baricitinib, Decadron, Lovenox, vitamin supplements. Patient seen today 12/11/2020 in follow-up on the selective care unit. She is currently resting comfortably in bed. Awake and alert in no acute distress. He denies any worsening shortness of breath, cough or congestion. She is down to 8 L high flow nasal cannula. Chest x-ray showing some slight improvement in the bilateral patchy infiltrates. She is continued on Baricitinib, Decadron, Lovenox, vitamins. Blood culture revealed no growth. Sputum culture revealed no growth. White count 14.3. Hemoglobin 13.0. D-dimer 6.79. Sodium 133. Potassium 4.9. Bicarb 28. Creatinine 0.66. Glucose 140. AST 44, ALT 49. LDH 933. C-reactive protein 4.3. On 12/12/2020 patient seen in follow-up on selective care unit, she is awake and alert, in no acute distress, she continues to improve, her FiO2 is currently down to 4 L, her pulse ox is 94%, she's been afebrile, hemodynamically she's been stable, she is sitting up in the recliner, she is in good spirits, no complaints of worsening dyspnea, her oxygenation continues to improve, she continues on Baricitinib, she continues on Decadron. She continues on a vitamins. Her labs are pending for today, d-dimer yesterday was 6.79, repeat d-dimer is pending, she remains on Lovenox 40 mg twice a day, CTA chest is pending. No specific complaints overnight. She is tolerating oral intake, no nausea vomiting or diarrhea. Objective - Vital Signs Vital signs: Vital Signs Temp 98.4 F 12/12/20 09:35 Pulse 76 12/12/20 09:35 Resp 18 12/12/20 09:35 BP 132/58 12/12/20 09:35 Pulse Ox 94 L 12/12/20 09:35 Intake & Output 12/11/20 12/12/20 12/12/20 18:59 06:59 18:59 Intake Total 480 120 Balance 480 120 Weight 77 kg Intake: Oral 480 120 Other: Voiding Method Bedside Commode Bedside Commode Bedside Commode # Voids 3 1 3 # Bowel Movements 1 - Exam GENERAL EXAM: Alert, very pleasant 85-year-old white female, on 4 L of oxygen, with a pulse ox of 94% comfortable in no apparent distress. HEAD: Normocephalic/atraumatic. EYES: Normal reaction of pupils, equal size. Conjunctiva pink, sclera white. NOSE: Clear with pink turbinates. THROAT: No erythema or exudates. NECK: No masses, no JVD, no thyroid enlargement, no adenopathy. CHEST: No chest wall deformity. Symmetrical expansion. LUNGS: Equal air entry with no crackles, wheeze, rhonchi or dullness. CVS: Regular rate and rhythm, normal S1 and S2, no gallops, no murmurs, no rubs ABDOMEN: Soft, nontender. No hepatosplenomegaly, normal bowel sounds, no guarding or rigidity. EXTREMITIES: No clubbing, no edema, no cyanosis, 2+ pulses and upper and lower extremities. MUSCULOSKELETAL: Muscle strength and tone normal. SPINE: No scoliosis or deformity SKIN: No rashes CENTRAL NERVOUS SYSTEM: Alert and oriented -3. No focal deficits, tone is normal in all 4 extremities. PSYCHIATRIC: Alert and oriented -3. Appropriate affect. Intact judgment and insight. - Labs CBC & Chem 7: 12/11/20 09:04 12/11/20 09:04 Assessment and Plan Plan: Assessment: #1. Acute COVID-19 related pneumonia, patient is non-vaccinated, she was outside of the window for Remdesivir upon presentation, she had worsening of her hypoxia, and she was initiated on Baricitinib on 12/08/2020 #2. Acute hypoxic respiratory failure secondary to the above, improved currently and FiO2 is down to 4 L #3. Elevated d-dimer, currently on Lovenox at 0.5 mg/kg per body weight dose, CTA chest is pending #4. Hypothyroidism #5. Difficulty hearing #6. Osteoarthritis Plan: Patient is improving, FiO2 is down to 4 L Continue Baricitinib, Decadron, vitamin supplements Increased Lovenox to 40 mg twice a day CT chest is pending to rule out possibility of pulmonary embolism Clinically patient is feeling better, she is less dyspneic and less hypoxic Continue weaning FiO2 to keep O2 sats ration is at or around 90% We'll plan for discharge home in the next 24 hours possibly with home oxygen if she qualifies patient remains stable and continues to improve We'll obtain follow-up chest x-ray and inflammatory markers tomorrow I performed a history & physical examination of the patient and discussed their management with my nurse practitioner, Kim Mcgrath. I reviewed the nurse practitioner's note and agree with the documented findings and plan of care. Lung sounds are positive for diffuse wheezes throughout the lung marie. The findings and the impression was discussed with the patient. I attest to the documentation by the nurse practitioner. Time with Patient: Less than 30
--- NOTE | 2020-12-12 15:09 | CT ---
EXAMINATION TYPE: CT angio chest DATE OF EXAM: 12/12/2020 COMPARISON: Chest x-ray 12/11/2020 HISTORY: elevated d dimer CT DLP: 288.3 mGycm Automated exposure control for dose reduction was used. CONTRAST: CTA scan of the thorax is performed with IV Contrast, patient injected with 100 mL of Isovue 370, pul monary embolism protocol. MIP images are created and reviewed. 3D reconstructed images are created on an independent workstation and reviewed. FINDINGS: LUNGS: Groundglass opacities are scattered bilaterally within the lungs, bandlike areas of increased attenuation are present. Some air bronchograms, atelectatic lung present in the left lung base, minim al left pleural effusion noted. There is no pneumothorax seen. The tracheobronchial tree is patent. 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 MEDIASTINUM: There is satisfactory enhancement of the pulmonary artery and its branches, there is no CT evidence for pulmonary embolism. There are no greater than 1 cm hilar or mediastinal lymph nodes. No pericardial effusion is seen. OTHER: No additional significant abnormality is seen. IMPRESSION: FINDINGS CONSISTENT WITH PNEUMONIA. NO EVIDENT PULMONARY EMBOLISM.
--- NOTE | 2020-12-12 16:29 | US ---
EXAMINATION TYPE: US venous doppler duplex LE DATE OF EXAM: 12/12/2020 4:03 PM COMPARISON: NONE CLINICAL HISTORY: r/o dvt. No hx of DVT. Patient feels pain in left leg. SIDE PERFORMED: Bilateral TECHNIQUE: The lower extremity deep venous system is examined utilizing real time linear array sonog fouzia with graded compression, doppler sonography and color-flow sonography. VESSELS IMAGED: Common Femoral Vein Deep Femoral Vein Greater Saphenous Vein * Femoral Vein Popliteal Vein Small Saphenous Vein * Proximal Calf Veins (* superficial vessels) Right Leg: CFV and femoral vein appear to compress incompletely. Possible chronic internal echoes al jalyn wall. Color flow seen in all veins imaged. Left Leg: CFV appears to compress incompletely. Possible chronic internal echoes along wall. Color f low seen in all veins imaged. IMPRESSION: No evidence of acute deep vein thrombosis in both legs. There is some mild wall thickeni ng that could relate to some mild chronic deep vein thrombosis in both legs.
[2020-12-12] MEDS: BARICITINIB 2 MG TABLET PO SCH (16:31)
[2020-12-12] MEDS: MELATONIN 3 MG TABLET PO PRN (20:52)
--- NOTE | 2020-12-13 02:50 | PN ---
PROGRESS NOTE DATE OF SERVICE: 12/12/2020 REASON FOR FOLLOWUP: COVID-19 pneumonia. INTERVAL HISTORY: Patient is afebrile. The patient is breathing more comfortably. She is current down to 2 L nasal cannula. The patient denies having any chest pain. Minimal cough. No nausea, no vomiting. No abdominal pain. No diarrhea. PHYSICAL EXAMINATION: Blood pressure 113/59, pulse of 88, temperature 98.6. She is 93% on 2 L nasal cannula. General description is an elderly female lying in bed in no distress. Respiratory system: Unlabored breathing. Decreased intensity of breath sounds. No wheeze. Heart S1, S2. Regular rate and rhythm. Abdomen soft, no tenderness. LABS: Hemoglobin is 13.1, white count 14.3, creatinine 0.66. DIAGNOSTIC IMPRESSION AND PLAN: This patient with acute COVID-19 pneumonia in this patient has shown overall clinical improvement. She is currently down to 2 L nasal cannula. The patient's CT angiogram was negative for any PE. The patient has improved and will be continued on baricitinib, dexamethasone, zinc and ascorbic acid. No need for systemic antibiotic therapy. MMODL / IJN: [id number] /
[2020-12-13 08:49] LABS: Basophils % (A) 0 %; Eosinophils % (A) 0 %; HCT 36.7 % (34.0-46.0); HGB 11.8 gm/dL (11.4-16.0); Lymphocytes # (A) 1.4 k/uL (1.0-4.8); Lymphocytes % (A) 11 %; MCH 30.5 pg (25.0-35.0); MCHC 32.1 g/dL (31.0-37.0); MCV 95.1 fL (80.0-100.0); Mean Platelet Volume 7.8; Monocytes # (A) 0.3 k/uL (0-1.0); Monocytes % (A) 3 %; Neutrophils % (A) 86 %; Platelet Count 484 k/uL (150-450); RBC 3.86 m/uL (3.80-5.40); WBC 12.9 k/uL (3.8-10.6)
--- NOTE | 2020-12-13 08:53 | XR ---
EXAMINATION TYPE: XR chest 1V portable DATE OF EXAM: 12/13/2020 COMPARISON: 12/11/2020 HISTORY: Cough TECHNIQUE: Single frontal view of the chest is obtained. FINDINGS: Diffuse predominantly interstitial infiltrates are stable. Tiny left pleural effusion sugg ested. No sizable pneumothorax. Heart size normal. Diffuse osteopenia and arthropathy of the shoulder . Curvature of the spine with hypertrophic changes. Atherosclerotic change aorta. IMPRESSION: Bilateral infiltrates are stable.
[2020-12-13] MEDS: dexAMETHasone 4 MG TAB PO SCH (09:02)
[2020-12-13] MEDS: ASPIRIN 325 MG TAB PO SCH (09:02)
[2020-12-13] MEDS: ENOXAPARIN 40 MG/0.4 ML SYRINGE SQ SCH (09:02)
[2020-12-13] MEDS: CHOLECALCIFEROL 25 MCG (1000 IU) TABLET PO SCH (09:02)
[2020-12-13] MEDS: ASCORBIC ACID 500 MG TAB PO SCH (09:02)
[2020-12-13 09:03] LABS: African American GFR (CKD) >90 (>60 ml/min/1.73 sqM); Anion Gap 7 mmol/L; Blood Urea Nitrogen 32 mg/dL (7-17); Calcium 9.3 mg/dL (8.4-10.2); Carbon Dioxide 29 mmol/L (22-30); Chloride 97 mmol/L (98-107); Glucose 108 mg/dL (74-99); LDH 828 U/L (313-618); Non-African American GFR(CKD) 83 (>60 ml/min/1.73 sqM); Sodium 133 mmol/L (137-145)
[2020-12-13] MEDS: amLODIPine 5 MG TAB PO SCH (09:03)
[2020-12-13] MEDS: ZINC SULFATE 220 MG CAP PO SCH (09:03)
[2020-12-13] MEDS: FAMOTIDINE 20 MG TAB PO SCH (09:03)
[2020-12-13] MEDS: THYROID, PORK 30 MG TAB PO SCH (09:03)
[2020-12-13 09:27] VITALS: RESP 16; TEMP 97.5
[2020-12-13 09:47] LABS: C Reactive Protein 2.4 mg/dL (<1.0)
[2020-12-13 12:12] VITALS: BP 121/57; PULSE 80
--- NOTE | 2020-12-13 14:43 | P.PN ---
Subjective Progress Note Date: 12/13/20 Principal diagnosis: Coronavirus associated pneumonia. Acute COVID-19 pneumonia, acute hypoxic respiratory failure 85-year-old female patient is less with COVID-19 related to pneumonia. The patient was having increased cough and fever. She is essentially a poor historian. Apparently she was having fever for past several days and sized exact onset of the symptoms are not clear to me at this point in time. Note that she is not vaccinated for COVID-19. She is currently hospitalized and she is on 2 L of oxygen by nasal cannula. She had a white cell count of 13.7 at eric e of admission and her sodium level was 140, troponins were 0.07 and 0.05 respectively 2, d-dimer is at 2.02 and a chest x-ray showed interstitial pneumonia bilaterally. Patient is currently on Decadron the patient also covered with Lovenox 40 mg subcu for DVT prophylaxis. The patient is also rec eiving normal saline at the rate of 100 mL an hour. No other complaints otherwise. Comorbid conditions include hypothyroidism and osteoarthritis. Reevaluated today on 12/06/2020, patient remains on 8 L high flow cannula with O2 saturation ranging anywhere between 88-96%. Patient seems to be comfortable, not in any distress. She is afebrile, she is hemodynamically stable blood pressure is 117/58. Labs today were unremarkable except she does have leukocytosis with WBC count of 16.9, d-dimer is 2.02 lites are normal renal profile is normal. Patient is on COVID-19 cocktail, she is on Lovenox 40 mg subcu daily, she is on Decadron, did not receive Remdesivir, as she was likely out of the therapeutic window. The patient is seen today at 50,021 in follow-up on the selective care unit. She is currently resting fairly comfortably in bed. Awake and alert. She is requiring 10 L high flow nasal cannula to maintain O2 saturation at 90%. She's been afebrile. Hemodynamically stable. Chest x-ray continues to revealed bilateral airspace disease, possible underlying pulmonary edema. Blood cultures reveal no growth to date. Sputum culture pending. White count 22.0. Hemoglobin 13.7. Lymphocytes 0.9. Sodium 136. Potassium 4.6. Creatinine 0.56. She remains on Decadron 6 mg twice a day, Lovenox. Initiated on ceftriaxone per medicine. Pro-calcitonin pending. Received IV diuretics today. The patient is seen today 12/08/2020 follow-up on the selective care unit. She is currently sitting up in a chair at the bedside. Awake and alert in no acute distress. She is up to 15 L high flow nasal cannula to maintain O2 saturation the high 80s low 90s. She is continued on Lovenox, Decadron, vitamin supplements. No evidence of infection. Blood cultures reveal no growth. Sput um culture revealed no growth. White count 19.2. Hemoglobin 12.4. Lymphocytes 1.1. D-dimer 2.41. Sodium 135. Potassium 4.3. Creatinine 0.51. Glucose 147. LDH 990. C-reactive protein 24.5. ProCalcitonin 0.65. The patient is see today 12/09/2020 in follow-up on the selective care unit. Sh sariah is currently resting fairly comfortably in bed. Awake and alert in no acute distress. Breathing about the same today as compared to yesterday. Remains on 15 L high flow nasal cannula to remain saturations in the 80s and 90s. Blood culture reveals no growth. Sputum culture revealed no growth. White count 14.5. Hemoglobin 11.8. Lymphocytes 1.4. Sodium 135. Potassium 4.9. Creatinine 0.54. Glucose 138. C-reactive protein 14.9. She remains on Baricitinib, Decadron, Lovenox, vitamin supplements. The patient is seen today 12/10/2020 follow-up on selective care unit. She is currently sitting up at the bedside. Working with physical therapy. Maintaining O2 saturations in the low 90s on 15 L high flow nasal cannula. Afebrile. Hemodynamically stable. Sputum culture revealed no growth. Blood cultures revealed no growth. No new labs today. Continuing on Baricitinib, Decadron, Lovenox, vitamin supplements. Patient seen today 12/11/2020 in follow-up on the selective care unit. She is currently resting comfortably in bed. Awake and alert in no acute distress. He denies any worsening shortness of breath, cough or congestion. She is down to 8 L high flow nasal cannula. Chest x-ray showing some slight improvement in the bilateral patchy infiltrates. She is continued on Baricitinib, Decadron, Lovenox, vitamins. Blood culture revealed no growth. Sputum culture revealed no growth. White count 14.3. Hemoglobin 13.0. D-dimer 6.79. Sodium 133. Potassium 4.9. Bicarb 28. Creatinine 0.66. Glucose 140. AST 44, ALT 49. LDH 933. C-reactive protein 4.3. On 12/12/2020 patient seen in follow-up on selective care unit, she is awake and alert, in no acute distress, she continues to improve, her FiO2 is currently down to 4 L, her pulse ox is 94%, she's been afebrile, hemodynamically she's been stable, she is sitting up in the recliner, she is in good spirits, no complaints of worsening dyspnea, her oxygenation continues to improve, she continues on Baricitinib, she continues on Decadron. She continues on a vitamins. Her labs are pending for today, d-dimer yesterday was 6.79, repeat d- dimer is pending, she remains on Lovenox 40 mg twice a day, CTA chest is pending. No specific complaints overnight. She is tolerating oral intake, no nausea vomiting or diarrhea. Progress note dated 12/13/2020. The patient is again seen in room 376. She's up in a chair, having lunch. She appears in no acute distress. She is awake and alert. She denies any si gnificant difficulty breathing, and there is no evidence of use of accessory muscles or conversational dyspnea. Currently she is on 2 L, with saturations of 95%. Pressures 121/57 respiratory rate 16 heart rate 80 and temperature is normal. White count 12.9, hemoglobin 11.8, hematocrit 36.7, platelet count 484,000. D-dimer is down to 3.7. Sodium 133, potassium 5, chlorides 97, CO2 29, anion gap 7, BUN 32, creatinine 0.65. Chest x-ray shows diffuse bilateral infiltrates, essentially unchanged. Objective - Vital Signs Vital signs: Vital Signs Temp 97.5 F L 12/13/20 09:00 Pulse 80 12/13/20 12:11 Resp 16 12/13/20 12:11 BP 121/57 12/13/20 12:11 Pulse Ox 95 12/13/20 12:11 Intake & Output 12/12/20 12/13/20 12/13/20 18:59 06:59 18:59 Intake Total 240 480 480 Output Total 1700 Balance 240 -1220 480 Weight 76 kg Intake: Oral 240 480 480 Output: Urine 1700 Other: Voiding Method Bedside Commode # Voids 3 1 1 - Exam No acute distress, oriented 3. HEENT examination is grossly unremarkable. Nasal O2 in place at 2 L. Neck supple. Full range of motion. No adenopathy thyromegaly or neck vein distention. Cardiovascular examination reveals regular rhythm rate. S1-S2 normal. No S3 or S4. No discernible murmur noted. Heart sounds are bit distant. Heart rate is 80 bpm. Lungs reveal scattered rhonchi. No wheezes or crackles. Breath sounds equal bilaterally. Abdomen soft bowel sounds are heard. No masses or tenderness. Extremities are intact. No cyanosis clubbing or edema. Skin is without rash or lesion. Neurologic examination is brief but nonfocal. - Labs CBC & Chem 7: 12/13/20 08:07 12/13/20 08:07 Labs: Abnormal Lab Results - Last 24 Hours (Table) 12/13/20 12/13/20 12/13/20 Range/Units 08:07 08:07 08:07 WBC 12.9 H (3.8-10.6) k/uL Plt Count 484 H (150-450) k/uL Neutrophils # 11.0 H (1.3-7.7) k/uL D-Dimer 3.70 H (<0.60) mg/L FEU Sodium 133 L (137-145) mmol/L Chloride 97 L (98-107) mmol/L BUN 32 H (7-17) mg/dL Glucose 108 H (74-99) mg/dL Lactate Dehydrogenase 828 H (313-618) U/L C-Reactive Protein 2.4 H (<1.0) mg/dL Assessment and Plan Assessment: Acute coronavirus associated pneumonia, with moderate hypoxemic respiratory failure. Elevated inflammatory marker secondary to coronavirus infection. No evidence of pulmonary embolism on CT angiogram or DVT on Doppler studies. Hypothyroidism. Significant hearing loss. Osteoarthritis. Plan: Plan dated 12/13/2020. The patient is improving and has been weaned down to 2 L nasal cannula. For the time being, we will continue with Decadron, vitamins, and Lovenox, 40 mg [address] a day[address] angiogram was negative for pulmonary embolism, and Dopplers of lower extremities were negative for DVT. Additional recommendations and suggestions are forthcoming. Prognosis is guarded. We will continue to follow this patient and make recommendations where appropriate. Time with Patient: Less than 30
[2020-12-14] MEDS ORDERED: ENOXAPARIN 40 MG/0.4 ML SYRINGE SQ SCH (09:00)
--- NOTE | 2020-12-14 12:21 | CDI ---
Documentation Clarification Form Date: 12/14/2020 12:15:57 PM From: Sloan Hanley Admit Date: 12/04/2020 10:26:00 PM Patient Name: Enid Medrano Visit Number: [id number] Discharge Date: 12/13/2020 03:14:00 PM ATTENTION: The Clinical Documentation Specialists (CDI) and [facility] Coding Staff appreciate your assistance in clarifying documentation. Please respond to the clarification below the line at the bottom and electronically sign. The CDI & [facility] Coding staff will review the response and follow-up if needed. Please note: Queries are made part of the Legal Health Record. If you have any questions, please contact the author of this message via ITS. Dr. Genny Solano The patient presented with the following clinical indicators. Additional clarification regarding the etiology/cause of the clinical indicators is requested. History/Risk Factors: COVID with COVID PNA Clinical Indicators: ED WBC: 13.7 Lactic acid: WNL Blood cultures: N/A Vitals signs: BP 129/63, pulse 80, Temp 99.5, resp 18 Treatment: Baricitnib ID Consult: Antibiotics: IV IV Bolus: In your professional opinion, please clarify if these findings signify one of the following conditions: [ ] Sepsis POA [ x ] Sepsis, Not POA [ ] Sepsis ruled out [ ] Severe Sepsis with organ failure [ ] Septic Shock [ ] SIRS, without underlying infectious process [ ] Other, please specify [ ] Unable to determine SIRS Criteria: 2 or more of the following may indicate SIRS -Temperature < 96.8F (36C) or > 101.0F (38.3C) -Heart Rate > 90 bpm -Respiratory Rate > 20 breaths/min or PaCO2 < 32 mmHg -White Blood Cell Count > 12,000 or < 4,000 cells/mm3 or > 10% bands (Template Last Reviewed: April 2020) MTDD
--- NOTE | 2020-12-16 09:52 | P.DS ---
Providers Date of admission: 12/04/20 22:26 Expected date of discharge: 12/13/20 Attending physician: Eda García Consults: 12/05/20 08:58 Consult Physician Routine Consulting Provider: Juliana Barrios Consult Reason/Comments: COVID Do you want consulting provider notified?: Yes 12/07/20 12:01 Consult Physician Routine Consulting Provider: Elliott Bahena Consult Reason/Comments: COVID(+) Do you want consulting provider notified?: Yes Primary care physician: Stated None Hospital Course: Final diagnosis -Possible sepsis, present on admission secondary to COVID-19 pneumonia -COVID-19 pneumonia - elevated d-dimer with no evidence of PE -asymptomatic bacteriuria -hypovolemic hyponatremia, improved. -Possible chronic CHF, 2-D echo showing LVEF 50-55% -Hypothyroidism= -Mild transaminitis, possibly secondary to Covid infection -Hyponatremia -DVT prophylaxis -Full code Discharge disposition Patient is being discharged in a stable condition with guarded prognosis to home. Patient will follow-up with her primary care provider out of [place] upon discharge. Patient also follow-up with Dr. Leyva in the outpatient setting. Patient will continue with vitamin and zinc supplements along with oral dexamethasone 6 mg to complete the course Total time taken is greater than 35 minutes. Hospital course This is a 85-year-old female who was recently admitted with acute COVID-19 and was being closely monitored. Patient initially maintained on 2 L via nasal cannula and respiratory status deteriorated requiring high flow oxygen. Patient was followed closely by infectious disease along with pulmonary and maintained on IV dexamethasone along with Lovenox, vitamin and zinc supplements and will continue with oral dexamethasone 6 no grams daily for the next 5 days to complete the course along with vitamin and zinc supplements. Patient respiratory status improved requiring 2 L of oxygen on discharge secondary to COVID-19. Patient did start Baricitinib 6 doses. Patient will follow-up with her primary care provider on discharge along with pulmonary in the outpatient setting. Currently no reports of chest pain, worsening shortness of breath, or dictations. Patient is afebrile. No reports of nausea or vomiting noted and patient is tolerating diet. Patient will be discharged home today. Guarded prognosis. On exam vital signs are stable. Cardio S1, S2 are muffled. Respiratory shows diminished breath sounds at the bases with no wheezing or rhonchi noted. Abdomen is soft and nontender. Nervous system shows no focal deficits. Please refer to medication reconciliation sheet for a list of medications. Patient Condition at Discharge: Stable Plan - Discharge Summary Discharge Rx Participant: Yes New Discharge Prescriptions: New Aspirin 325 mg PO DAILY 30 Days #30 tab dexAMETHasone ORAL [Hexadrol] 6 mg PO DAILY 5 Days #5 tab amLODIPine [Norvasc] 5 mg PO DAILY 30 Days #30 tab Ascorbic Acid [Vitamin C] 1,000 mg PO DAILY 30 Days #60 tab Zinc Sulfate [Orazinc] 220 mg PO DAILY 30 Days #30 cap Famotidine [Pepcid] 20 mg PO BID 30 Days #60 tab Cholecalciferol [Vitamin D3 (25 Mcg = 1000 Iu)] 25 mcg PO DAILY 30 Days #30 tablet Continue Thyroid,Pork [[place]rose Thyroid] 30 mg PO DAILY Ibuprofen [Motrin Ib] 400 mg PO Q8H PRN PRN Reason: Pain Discharge Medication List Ibuprofen [Motrin Ib] 400 mg PO Q8H PRN 12/04/20 [History] Thyroid,Pork [[place] Thyroid] 30 mg PO DAILY 12/04/20 [History] Ascorbic Acid [Vitamin C] 1,000 mg PO DAILY 30 Days #60 tab 12/13/20 [Rx] Aspirin 325 mg PO DAILY 30 Days #30 tab 12/13/20 [Rx] Cholecalciferol [Vitamin D3 (25 Mcg = 1000 Iu)] 25 mcg PO DAILY 30 Days #30 tablet 12/13/20 [Rx] Famotidine [Pepcid] 20 mg PO BID 30 Days #60 tab 12/13/20 [Rx] Zinc Sulfate [Orazinc] 220 mg PO DAILY 30 Days #30 cap 12/13/20 [Rx] amLODIPine [Norvasc] 5 mg PO DAILY 30 Days #30 tab 12/13/20 [Rx] dexAMETHasone ORAL [Hexadrol] 6 mg PO DAILY 5 Days #5 tab 12/13/20 [Rx] Follow up Appointment(s)/Referral(s): Mike Leyva MD [STAFF PHYSICIAN] - 01/18/21 2:45 pm (Sunday with Erlinda Deutsch NP) [facility] [NON-STAFF] - [facility], [NON-STAFF] - 1-2 Days Nonstaff,Physician [REFERRING] - 1-2 days (Please follow up with a primary care physician) Patient Instructions/Handouts: Coronavirus Disease 2019 (COVID-19), Hypoxia (GEN) Activity/Diet/Wound Care/Special Instructions: COVID-19 Stay home until symptoms have subsided for three days. Monitor your symptoms; if you get worse call your healthcare provider immediately Get rest Stay hydrated If you have a medical appointment-Notify your provider that you are COVID positive For emergencies call 911 Cover your cough and sneezes Wash your hands often Try to stay in one place to reduce exposure Avoid sharing personal items Clean surfaces that you touch. Patient will require oxygen at 2 L via nasal cannula secondary COVID-19 Discharge Disposition: HOME WITH HOME HEALTH SERVICES
== END 2020-12-13 15:14 | disposition home health service (06) | DRG 177 ==
LOC: EC 18:33 → 3SCARD 22:26
PROVIDERS: ADMIT Hospitalist; ATTEND Hospitalist
PROC: 5A0945A Assistance with Respiratory Ventilation, 24-96 Consecutive Hours, High Flow/Velocity Cannula (ICD-10-PCS; 2020-12-06)
PROC: XW0DXM6 Introduction of Baricitinib into Mouth and Pharynx, External Approach, New Technology Group 6 (ICD-10-PCS; principal; 2020-12-08)
DX: U07.1 COVID-19 (principal); J12.82 Pneumonia due to coronavirus disease 2019; J96.01 Acute respiratory failure with hypoxia; A41.9 Sepsis, unspecified organism; E87.1 Hypo-osmolality and hyponatremia; H91.90 Unspecified hearing loss, unspecified ear; I27.20 Pulmonary hypertension, unspecified; E03.9 Hypothyroidism, unspecified; E86.1 Hypovolemia; M19.90 Unspecified osteoarthritis, unspecified site; T38.0X5A Adverse effect of glucocorticoids and synthetic analogues, initial encounter; D72.829 Elevated white blood cell count, unspecified; Z79.01 Long term (current) use of anticoagulants; Z87.01 Personal history of pneumonia (recurrent); R77.8 Other specified abnormalities of plasma proteins; Z88.0 Allergy status to penicillin
CPT/HCPCS: 36415; 71045; 71046; 71275; 80048; 80053; 80061; 81001; 82308; 82550; 83605; 83615; 83735; 84145; 84484; 85025; 85027; 85379; 86140; 87040; 87070; 87205; 87636; 93005; 93308; 93970; 94760; 96374; 99285